=== PATIENT | female | born 1965 | race Two or more races ===

== ENCOUNTER → 2020-05-06 15:06 | Outpatient (BNVA) | payer MEDICAID, SELFPAY | PROVIDERS: PCP Internal Medicine; Referring Provider Internal Medicine; Visit Provider Internal Medicine | DX: Z76.89 Persons encountering health services in other specified circumstances (principal) ==

== ENCOUNTER 2020-10-11 07:34 | Outpatient (REF) | payer MEDICAID, SELFPAY ==
--- NOTE | ~2020-10-11 | XR_ITS ---
EXAMINATION: XR KNEE AP STANDING CLINICAL INFORMATION: Pain. COMPARISON: Right and left knee radiographs dated 07/15/2019. TECHNIQUE: AP bilateral standing view of the knees was obtained. FINDINGS: Mild right knee medial compartment joint space narrowing. Medial and lateral compartment marginal osteophytes. No acute fracture or dislocation. Partially visualized femoral intramedullary leandro. Partially visualized sclerosis in the region of the proximal tibia which is minimally visualized and the prior radiographs and likely relates to a remote injury. Small marginal osteophytes within the left knee lateral compartment. No lytic or blastic osseous lesion. No osseous erosion. No fracture or dislocation. XR/XR knee standing BI IMPRESSION: 1. Mild medial and lateral compartment osteoarthritis within the right knee, slightly progressed when compared to the prior examination. 2. Minimal lateral compartment osteoarthritis within the left lung, slightly progressed when compared to the prior examination.
== END 2020-10-11 07:35 | disposition home or self-care (01) ==
LOC: HO.HOSX 07:34
PROVIDERS: Visit Provider Orthopaedic Surgery
DX: M17.0 Bilateral primary osteoarthritis of knee (principal); M79.7 Fibromyalgia
CPT/HCPCS: 73565; 99202

== ENCOUNTER 2020-11-17 13:47 | Outpatient (REF) | payer MEDICAID, SELFPAY ==
--- NOTE | ~2020-11-17 | US_ITS ---
EXAMINATION: US THYROID CLINICAL INFORMATION: Multinodular goiter. COMPARISON: Ultrasound thyroid soft tissues neck 07/24/2017 TECHNIQUE: Linear transducer farah-scale and color Doppler examination with attention to the region of the thyroid. FINDINGS: SIZE: Measurements of the thyroid lobes and nodules are given in sagittal, anteroposterior and transverse dimensions respectively. Right thyroid lobe: 5.5 x 2.2 x 2.1 cm, volume 12.7 mL. Previously 4.1 x 2.5 x 1.8 cm, volume 10.0 mL. Left thyroid lobe: 4.5 x 1.8 x 1.5 cm, volume 6.6 mL. Previously 4.4 x 1.7 x 1.4 cm, volume 5.3 mL. Isthmus: 0.4 cm in maximum AP dimension. Previously 0.6 cm. PARENCHYMA: The gland echotexture is homogeneous.Thyroid vascularity is normal. Comparison with previous exam from 2018 is difficult. Estimated total number of nodules greater than or equal to 1 cm: 1. [employer] nodules are described as follows: 1. Location: Right mid. Size: 1.9 x 1.6 x 1.6 cm, volume 2.5 mL. Previously: 2.3 x 1.7 x 1.9 cm, volume 3.9 mL. Comparison with previous exam is difficult and this may have been described as multiple adjacent nodules on prior exam as opposed to 1 large nodule. Nodule characteristics: Composition: Solid/almost completely solid (2). Echogenicity: Isoechoic (1). Shape: Not taller than wide (0). Margins: Ill-defined (0). Echogenic Foci: None (0). ACR TI-RADS total points: 3 ACR TI-RADS category: 3 Significant change in size (>/= 20% in 2 dimensions and minimal increase of 2 mm or 50% or greater increase in volume): Yes but decreased Change in features: No Change in ACR TI-RADS risk category: No NODES: No lymphadenopathy is seen in the tissue surrounding the thyroid gland. US/US thyroid IMPRESSION: Enlarged right lobe. 1.9 x 1.6 x 1.6 cm right mid thyroid nodule. Comparison with previous exam is difficult, and this may have been described as multiple adjacent nodules on prior exam as opposed to 1 large nodule. ACR TI-RADS RECOMMENDATION REFERENCE: Ultrasound-guided fine-needle aspiration, followup ultrasound, no further followup. * TR1 (0 point) and TR 2 (2 points): No FNA or followup. * TR3 (3 points): FNA if more than or equal to 2.5 cm in maximum dimension, followup ultrasound in 1, 3 and 5 years if 1.5 to 2.4 cm in maximum dimension. * TR4 (4-6 points): FNA if more than or equal to 1.5 cm in maximum dimension, followup ultrasound in 1, 2, 3 and 5 years if 1 to 1.4 cm in maximum dimension. * TR5 (more than or equal to 7 points): FNA if more than or equal to 1 cm in maximum dimension, followup ultrasound every year for 5 years if 0.5 to 0.9 cm in maximum dimension. * TR3, TR4 or TR5 nodules that are below the size threshold for followup receive no followup.
== END 2020-11-17 13:48 | disposition home or self-care (01) ==
LOC: HO.US 13:47
PROVIDERS: PCP Internal Medicine; Visit Provider Internal Medicine
DX: E04.2 Nontoxic multinodular goiter (principal)
CPT/HCPCS: 76536

== ENCOUNTER → 2020-12-15 11:12 | Outpatient (BNVA) | payer MEDICAID, SELFPAY | PROVIDERS: PCP Internal Medicine; Visit Provider Internal Medicine ==

== ENCOUNTER 2022-09-27 14:19 | Outpatient (REF) | payer MEDICAID, SELFPAY ==
--- NOTE | ~2022-09-27 | MM_ITS ---
EXAMINATION: BONE DENSITOMETRY CLINICAL INDICATION: Postmenopausal. COMPARISON: None (current study represents initial baseline exam). TECHNIQUE: Using a [employer] DXA System (software version: 13.1) manufactured by [employer], dual-energy x-ray absorptiometry was performed of the lumbar spine and left hip. The images are of good technical quality. Summary results are attached. FINDINGS: AP SPINE L1-L4: BMD 1.038 g/cm2, Z-score -0.3, T-score -1.2, osteopenia. LEFT FEMUR, NECK: BMD 0.993 g/cm2, Z-score 0.7, T-score -0.3, normal. LEFT FEMUR, TOTAL: BMD 1.085 g/cm2, Z-score 1.3, T-score 0.6, normal. IDENTIFIED RISK FACTORS: History of fracture (adult), menopause, rheumatoid arthritis, tobacco user (current smoker). HISTORY OF FRACTURE: Hip. MEDICATIONS: None listed. MM/XR DEXA axial skeleton IMPRESSION: 1. DIAGNOSIS: Osteopenia based on the lowest T-score value of -1.2 in the lumbar spine applying World Health Organization criteria. 2. 10-YEAR FRACTURE RISK PREDICTION, FRAX: Major osteoporotic fracture (clinical spine, forearm, hip or shoulder) 7.2%. Hip fracture 0.4%. 3. Treatment Recommendations: NOF guidelines recommend consideration for treatment in postmenopausal women and men age 50 and older presenting with the following: -A hip or vertebral (clinical or morphometric) fracture. -T-score less than or equal to -2.5 at the femoral neck or spine after appropriate evaluation to exclude secondary causes. -Low bone mass at the hip or spine and a 10-year fracture probability by FRAX of greater than or equal to 3% for hip fracture or greater than or equal to 20% for major osteoporotic fracture based on the [place] adapted WHO algorithm. 4. Other Recommendations: All treatment decisions require clinical judgment and consideration of individual patient factors, including patient preferences, comorbidities, previous drug use, risk factors not captured in the FRAX model (e.g. frailty, falls, vitamin D deficiency, increased bone turnover, interval significant decline in bone density) and possible under or overestimation of fracture risk by FRAX. Additional medical evaluation for secondary cause of low bone mineral density may be appropriate. FUTURE SCAN RECOMMENDATION: People with diagnosed cases of osteoporosis or at high risk for fracture should have regular bone mineral density tests. For patients eligible for Medicare, routine testing is allowed once every 2 years. The testing frequency can be increased to one year for patients who have rapidly progressing disease, those who are receiving or discontinuing medical therapy to restore bone mass, or have additional risk factors.
== END 2022-09-27 14:20 | disposition home or self-care (01) ==
LOC: HO.MAMMO 14:19
PROVIDERS: Visit Provider Internal Medicine
DX: Z13.820 Encounter for screening for osteoporosis (principal); Z78.0 Asymptomatic menopausal state
CPT/HCPCS: 77080

== ENCOUNTER 2023-10-10 11:36 | Outpatient (REF) | payer MEDICAID, SELFPAY ==
[2023-10-10 13:21] LABS: MANUAL DIFF FLAG NO
[2023-10-10 13:51] LABS: Basophils Percent Auto 0.7 % (0-2); Eosinophils Absolute Auto 0.2 X10*3/uL (0.0-0.4); Eosinophils Percent Auto 2.8 % (0-4); Hematocrit 40.5 % (37.0-47.0); Hemoglobin 13.8 g/dl (12.0-16.0); Imm Gran Abs Auto 0.02 X10*3/uL (0.00-0.03); Imm Gran Pct Auto 0.3 % (0.0-0.4); Lymphocytes Percent Auto 35.1 % (20-40); Mean Corpuscular HGB Conc 34.1 g/dl (31.0-35.0); Mean Corpuscular Hemoglobin 33.3 pg (27.0-33.0); Mean Corpuscular Volume 97.8 fL (80.0-98.0); Mean Platelet Volume 11.9 fL (9.4-12.3); Monocytes Absolute Auto 0.3 X10*3/uL (0.1-1.2); Monocytes Percent Auto 4.6 % (2-11); Neutrophils Absolute Auto 3.3 x10*3/uL (2.0-8.3); Neutrophils Percent Auto 56.5 % (45-73); Platelet Count 182 X10*3/uL (160-400); Red Blood Count 4.14 X10*6/uL (4.20-5.50); Red Cell Distribution Width 12.2 % (11.0-16.0); White Blood Count 5.8 X10*3/uL (4.8-10.8)
[2023-10-10 14:04] LABS: Rheumatoid Factor 15.1 IU/mL (<15.0)
[2023-10-10 14:06] LABS: C Reactive Protein 0.22 mg/dL (< or = 0.50)
[2023-10-10 14:22] LABS: Erythrocyte Sedimentation Rate 14 MM/HR (0-20)
[2023-10-10 14:27] LABS: TSH reflex Free T4 1.06 uIU/mL (0.32-4.0)
[2023-10-11 07:18] LABS: Syphilis Screen Nonreactive (Nonreactive)
[2023-10-15 11:43] LABS: Anti Nuclear Antibody Screen NEGATIVE (NEGATIVE)
== END 2023-10-10 11:37 | disposition home or self-care (01) ==
LOC: HO.HHCL 11:36
PROVIDERS: Visit Provider Internal Medicine
DX: M17.0 Bilateral primary osteoarthritis of knee (principal)
CPT/HCPCS: 36415; 84443; 85025; 85652; 86038; 86140; 86431; 86780

== ENCOUNTER 2023-12-17 12:51 | Outpatient (REF) | payer MEDICAID, SELFPAY ==
[2023-12-18 07:52] LABS: HBS Num1 35.31 mIU/mL (0-7.99); HBc Num1 0.08 S/CO (0.00-0.79); HBsAGNum1 0.25 S/CO (0.00-0.99); Hepatitis A Antibody IgM 0.35 Index (0-0.79); Hepatitis B Core Antibody Nonreactive (Nonreactive); Hepatitis B Surface Antigen Negative (Negative); ~HepC Num1 0.14 S/CO (0.00-0.79); ~Hepatitis A Antibody IgM Nonreactive (Nonreactive); ~Hepatitis B Surface Antibody REACTIVE (Nonreactive); ~Hepatitis C Antibody Nonreactive (Nonreactive)
[2023-12-18 20:08] LABS: Anti DNA DS Antibody <1 IU/mL
[2023-12-19 15:49] LABS: Cyclic Citrullinated Peptide <16 UNITS
[2023-12-19 23:34] LABS: Complement C3 116 mg/dL (83-193)
== END 2023-12-17 12:52 | disposition home or self-care (01) ==
LOC: HO.HHCL 12:51
PROVIDERS: Visit Provider Internal Medicine
DX: R76.8 Other specified abnormal immunological findings in serum (principal); M25.561 Pain in right knee; G89.29 Other chronic pain
CPT/HCPCS: 36415; 86160; 86200; 86225; 86704; 86706; 86709; 86803; 87340

== ENCOUNTER 2024-02-22 14:27 | Outpatient (REF) | payer MEDICAID, SELFPAY ==
--- NOTE | ~2024-02-22 | XR_ITS ---
EXAMINATION: XR ANKLE, RIGHT CLINICAL INFORMATION: Pain COMPARISON: None available. TECHNIQUE: AP, lateral, and mortise views of the right ankle. FINDINGS: Negative for acute fracture or dislocation. There is soft tissue swelling medially greater than laterally. Possible joint effusion is also present. No evidence for bony erosion. Moderate spurring at the insertion of the Achilles and moderate to marked spurring at the insertion of the plantar aponeuroses on the calcaneus. The mortise is grossly intact. XR/XR ankle RT min 3V IMPRESSION: Soft tissue swelling as described and probable effusion. Some degenerative changes and spurring are noted. No acute fracture or dislocation. If further evaluation is warranted recommendation is MRI
== END 2024-02-22 14:28 | disposition home or self-care (01) ==
LOC: HO.HHCX 14:27
PROVIDERS: Visit Provider Internal Medicine
DX: M25.571 Pain in right ankle and joints of right foot (principal)
CPT/HCPCS: 73610

== ENCOUNTER 2024-05-23 10:03 | Outpatient (AMB) | payer MEDICAID, SELFPAY ==
--- NOTE | 2024-05-23 10:05 | MHC.OFFVIS ---
Vital Signs 05/23/24 10:21 Height 5 ft Weight 143 lb 4.807 oz BMI 28.0 BP 104/62 Blood Pressure Location Lt brachial Position Sitting Pulse 69 Pulse Source Pulse Oximeter Intake Visit Reasons: Thyroid Nod-# not in service Intake Note: New patient present today for Thyroid Nod office visit. 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 Accompanied by: Friend Allergies acetaminophen [Percocet] Allergy (Unknown, Verified 05/23/24 10:24) vomiting oxycodone [Percocet] Allergy (Unknown, Verified 05/23/24 10:24) vomiting No Known Allergies [No Known Allergies*] Allergy (Verified 05/23/24 10:24) Medication List - Last Reconciled 05/23/24 by Isela Santillan MD acetaminophen 325 mg PO QID PRN calcium carbonate (Antacid (calcium carbonate)) 200 mg PO BID diclofenac sodium 3% 1 appl topical BID duloxetine 90 mg PO DAILY hydroxyzine pamoate 50 mg PO BID lamotrigine 100 mg PO DAILY psyllium 1 packet PO TID venlafaxine ER 37.5 mg PO DAILY HPI Comments Details: 58 YO F with PMHx bipolar disorder who is seen in F/U for NTMNG. She was last seen in our clinic in [address] Smith. HPI from prior visit In late [address] scan of the cervical spine which made note of a 1.5 cm mass within the R lobe of the thyroid. Jul 2017 she had thyroid US which revealed multiple nodules within the R lobe of the thyroid, with a 1.4 cm nodule in the R mid pole with irregular margins. She underwent FNA of this R mid pole nodule 04/24/19. The nodule had grown at that time to measure 2.3 cm. Cytology was reported as Benign ([place] Category II). Most recent thyroid ultrasound 11/17/2020: I reviewed the images myself which showed the right mid 1.9 cm, solid, isoechoic nodule that measures smaller than previous measurement of 2.3 cm. Patient currently denies heat or cold intolerance, hair loss, palpitation, anxiety, mood changes, changes in appearance of eyes or vision changes, tremors, increased diaphoresis or dry skin. ? Reports loose stools seeing GI. Has lost 30 lbs in the last 3 years , says apetite is reduced. Reports low energy. Patient denies any difficulty swallowing, pain on swallowing or voice changes or difficulty breathing. Patient denies any history of childhood neck radiation. Denies having ever used lithium, amiodarone or biotin supplements. Patient denies any family history of thyroid cancer or thyroid disease. On disability. Smokes a pack a day, also smokes marijuana. Review of systems Constitutional: no fevers, chills or weight loss HEENT: no changes in vision Cardiac: No chest pain, discomfort or palpitations. Pulmonary: No SOB Physical exam General: sitting comfortably in no acute distress HEENT: normocephalic/atraumatic, moist oral mucosa Neck: supple, symmetrical Cardiac: normal heart sounds Pulm: normal breath sounds B/L, no added breath sounds Abd: not distended, no tenderness Extremities: no edema, no signs of myxedema Laboratory Tests 10/10/23 11:40 TSH 1.06 Thyroid US 11/17/2020: Right thyroid lobe: 5.5 x 2.2 x 2.1 cm, volume 12.7 mL. Previously 4.1 x 2.5 x 1.8 cm, volume 10.0 mL. Left thyroid lobe: 4.5 x 1.8 x 1.5 cm, volume 6.6 mL. Previously 4.4 x 1.7 x 1.4 cm, volume 5.3 mL. Isthmus: 0.4 cm in maximum AP dimension. Previously 0.6 cm. PARENCHYMA: The gland echotexture is homogeneous.Thyroid vascularity is normal. Comparison with previous exam from 2018 is difficult. Estimated total number of nodules greater than or equal to 1 cm: 1. [employer] nodules are described as follows: 1. Location: Right mid. Size: 1.9 x 1.6 x 1.6 cm, volume 2.5 mL. Previously: 2.3 x 1.7 x 1.9 cm, volume 3.9 mL. Comparison with previous exam is difficult and this may have been described as multiple adjacent nodules on prior exam as opposed to 1 large nodule. Nodule characteristics: Composition: Solid/almost completely solid (2). Echogenicity: Isoechoic (1). Shape: Not taller than wide (0). Margins: Ill-defined (0). Echogenic Foci: None (0). ACR TI-RADS total points: 3 ACR TI-RADS category: 3 Significant change in size (>/= 20% in 2 dimensions and minimal increase of 2 mm or 50% or greater increase in volume): Yes but decreased Change in features: No Change in ACR TI-RADS risk category: No NODES: No lymphadenopathy is seen in the tissue surrounding the thyroid gland. FORMERLY [facility] Medical History Anxiety Back pain Bakers cyst Bipolar disorder Depression Fibromyalgia Genital herpes Hepatitis B Multinodular thyroid Plantar fasciitis Tetanus Vitamin D deficiency Surgical History No pertinent past surgical history Family History Father No problems noted. Mother No problems noted. Assessment & Plan Assessment & Plan (1) Multinodular thyroid: Code(s): E04.2 - Nontoxic multinodular goiter Category: Medical Plan: 58-year-old female who is here today for follow up of nontoxic multinodular goiter. Diagnosed in [address] scan of the cervical spine. Ultrasound thyroid in 2018 showed multiple nodules with a dominant 1.4 cm right midpole nodule with a regular margins, subsequently this had grown to 2.3 cm in 2019 when she had her right midpole FNA in April 2019 with benign cytology ([place] category 2). Last ultrasound is from 2020 which showed stable size of the nodule which measured slightly smaller at 1.9 cm. No ultrasounds after that. TSH from October 2023 within normal limits. Patient does not have any compressive symptoms. We will plan to repeat thyroid ultrasound now. Does report tiredness and weight loss which is new, will recheck TFTs. Plan: -ordered ultrasound of the thyroid -Ordered TSH , free T4 -follow up in 8 weeks to discuss results Plan I spent 45 minutes in reviewing the record, seeing the patient and documenting in the medical record. Orders: Orders US thyroid Today E04.2 - Nontoxic multinodular goiter Thyroid Stimulating Hormone Today E04.2 - Nontoxic multinodular goiter Free T4 (Free Thyroxine) Today E04.2 - Nontoxic multinodular goiter Patient Instructions: Do thyroid ultrasound Do blood work Follow up in 8 weeks to discuss results Coding Level of Care Code New Pt Level 4 (77540) Diagnoses Multinodular thyroid E04.2 Time Spent (min) 45
[2024-05-23 10:21] VITALS: BP 104/62; PULSE 69; BMI 28.0
== END 2024-05-23 10:38 | disposition home or self-care (01) ==
PROVIDERS: PCP Internal Medicine; Visit Provider Student in an Organized Health Care Education/Training Program
DX: E04.2 Nontoxic multinodular goiter (principal)
CPT/HCPCS: 99204

== ENCOUNTER → 2024-05-23 10:03 | Outpatient (BNVA) | payer MEDICAID, SELFPAY | PROVIDERS: PCP Internal Medicine; Visit Provider Student in an Organized Health Care Education/Training Program | DX: E04.2 Nontoxic multinodular goiter (principal) | CPT/HCPCS: 99202 ==

== ENCOUNTER 2024-05-23 10:41 | Outpatient (REF) | payer MEDICAID, SELFPAY ==
[2024-05-23 13:52] LABS: Free T4 (Free Thyroxine) 0.92 ng/dL (0.71-1.85); Thyroid Stimulating Hormone 0.84 uIU/mL (0.32-4.0)
== END 2024-05-23 10:42 | disposition home or self-care (01) ==
LOC: HO.10HDL 10:41
PROVIDERS: Visit Provider Student in an Organized Health Care Education/Training Program
DX: E04.2 Nontoxic multinodular goiter (principal)
CPT/HCPCS: 36415; 84439; 84443

== ENCOUNTER 2024-06-12 14:07 | Outpatient (REF) | payer MEDICAID, SELFPAY ==
--- NOTE | ~2024-06-12 | US_ITS ---
EXAMINATION: Noninvasive assessment of the left lower extremity with ARTERIAL DUPLEX, ANKLE BRACHIAL INDICES (ABIs), and PULSE VOLUME RECORDINGS (PVRs). Noninvasive assessment of the right lower extremity with ANKLE BRACHIAL INDICES (ABIs), and PULSE VOLUME RECORDINGS (PVRs). CLINICAL INFORMATION: CLAUDICATION R/O PVD, history of smoking TECHNIQUE: Duplex Doppler techniques with waveform analysis and measurement of velocities in the left common femoral, profunda femoris, superficial femoral, popliteal and tibial arteries were performed. Additionally, ankle pulse volume recordings, ankle pressure measurements and ankle brachial indices were obtained of the lower extremity arterial system bilaterally. The study was performed only at rest. COMPARISON: None FINDINGS: DIRECT DUPLEX DOPPLER FINDINGS: LEFT LEG: Common femoral artery: 143 cm/s, phasicity: Triphasic Profunda femoris artery: 86 cm/s, phasicity: Biphasic Superficial femoral artery (proximal): 87 cm/s, phasicity: Triphasic Superficial femoral artery (mid): 103 cm/s, phasicity: Triphasic Superficial femoral artery (distal): 98 cm/s, phasicity: Triphasic Popliteal artery: 88 cm/s, phasicity: Triphasic Posterior tibial artery: 88 cm/s, phasicity: Biphasic Peroneal artery: 78 cm/s, phasicity: Biphasic Anterior tibial artery: 73 cm/s, phasicity: Biphasic Dorsalis pedis artery: 39 cm/s, phasicity: Biphasic A collateral is visualized at the left distal superficial femoral artery. BRACHIAL PRESSURES: Right: 111 Left: 110 ANKLE PRESSURES: Right: PT 128, DP 136 Left: PT 137, DP 136 ANKLE-BRACHIAL INDEX: Right: 1.23 Left: 1.23 ANKLE PVR WAVEFORMS: Right: Abnormal Left: Abnormal US/US arterial duplex LE LT IMPRESSION: 1. No evidence of hemodynamically significant stenosis in the left lower extremity by velocity criteria. However, a collateral is visualized at the left distal superficial femoral artery. 2. Normal ankle brachial indices bilaterally. SRINI Reference: - >1.4 = calcified vessels - 0.9 - 1.4 = normal - no significant arterial disease - 0.7 - 0.89 = mild peripheral arterial disease - 0.51 - 0.69 = moderate peripheral arterial disease - d 0.50 = severe peripheral arterial disease - < .30 = critical arterial disease Electronically signed by: Nancy Arambula MD 06/28/2024 06:02 PM DELFINO SUAREZ
== END 2024-06-12 14:08 | disposition home or self-care (01) ==
LOC: HO.US 14:07
PROVIDERS: Absent Provider Student in an Organized Health Care Education/Training Program; PCP Internal Medicine; Visit Provider Internal Medicine
DX: F17.200 Nicotine dependence, unspecified, uncomplicated (principal); E04.2 Nontoxic multinodular goiter; I73.9 Peripheral vascular disease, unspecified
CPT/HCPCS: 76536; 93923; 93926

== ENCOUNTER 2024-09-25 12:39 | Outpatient (AMB) | payer MEDICAID, SELFPAY ==
--- NOTE | 2024-09-25 13:07 | A.OFFVIS_ITS ---
Vital Signs 09/25/24 13:09 Height 5 ft Weight 144 lb 13.499 oz BMI 28.3 BP 90/58 L Blood Pressure Location Rt brachial Position Sitting Pulse 69 Pulse Source Pulse Oximeter Pulse Oximetry (%) 96 Oxygen Delivery Method Room Air Intake Visit Reasons: Multinodular thyroid Intake Note: Patient present today for Multinodular Thyroid follow up. Montessori Paraprofessional Required: No Accompanied by: Friend Allergies acetaminophen [Percocet] Allergy (Unknown, Verified 09/25/24 13:10) vomiting oxycodone [Percocet] Allergy (Unknown, Verified 09/25/24 13:10) vomiting No Known Allergies [No Known Allergies*] Allergy (Verified 09/25/24 13:10) Medication List - Last Reconciled 09/25/24 by Isela Santillan MD acetaminophen 325 mg PO QID PRN diclofenac sodium 3% 1 appl topical BID duloxetine 90 mg PO DAILY lamotrigine 100 mg PO DAILY psyllium 1 packet PO TID venlafaxine ER 37.5 mg PO DAILY HPI Comments Details: 58 YO F with PMHx bipolar disorder who is seen in F/U for NTMNG. HPI from prior visit In late [address] scan of the cervical spine which made note of a 1.5 cm mass within the R lobe of the thyroid. Jul 2017 she had thyroid US which revealed multiple nodules within the R lobe of the thyroid, with a 1.4 cm nodule in the R mid pole with irregular margins. She underwent FNA of this R mid pole nodule 04/24/19. The nodule had grown at that time to measure 2.3 cm. Cytology was reported as Benign ([place] Category II). thyroid ultrasound 11/17/2020: I reviewed the images myself which showed the right mid 1.9 cm, solid, isoechoic nodule that measures smaller than previous measurement of 2.3 cm. Patient currently denies heat or cold intolerance, hair loss, palpitation, anxiety, mood changes, changes in appearance of eyes or vision changes, tremors, increased diaphoresis or dry skin. ? Reports loose stools seeing GI. Has lost 30 lbs in the last 3 years , says apetite is reduced. Reports low energy. Patient denies any difficulty swallowing, pain on swallowing or voice changes or difficulty breathing. Patient denies any history of childhood neck radiation. Denies having ever used lithium, amiodarone or biotin supplements. Patient denies any family history of thyroid cancer or thyroid disease. On disability. Smokes a pack a day, also smokes marijuana. Interval history 05/23/2024: Normal TFTs 06/12/2024: Ultrasound of the thyroid I reviewed the images myself, which showed the right mid lobe solid, isoechoic nodule remained stable, it does point to a right inferior new nodule measuring 1.2 cm, however when I reviewed the images this looks to me as the same as the right mid lobe nodule, I do not necessarily think this is a separate new nodule. Regardless patient should have repeat imaging in 1 year . Physical exam General: sitting comfortably in no acute distress HEENT: normocephalic/atraumatic, moist oral mucosa Neck: supple, palpable 1 cm right nodule Cardiac: normal heart sounds Pulm: normal breath sounds B/L, no added breath sounds Abd: not distended, no tenderness Extremities: no edema, no signs of myxedema Laboratory Tests 10/10/23 11:40 TSH 1.06 Laboratory Tests 05/23/24 10:44 TSH 0.84 Free T4 0.92 US THYROID 06/12/24 CLINICAL INFORMATION: Nontoxic multinodular goiter. COMPARISON: Thyroid ultrasound 11/17/2020 and 07/24/2017. Ultrasound-guided thyroid biopsy 04/24/2019. TECHNIQUE: Linear transducer grayscale and color Doppler examination with attention to the region of the thyroid. FINDINGS: SIZE: Measurements of the thyroid lobes and nodules are given in sagittal, anteroposterior and transverse dimensions respectively. Right Thyroid Lobe: 5.3 x 2.2 x 2.3 cm, volume 12.7 mL. Previously 5.5 x 2.2 x 2.1 cm, volume 12.7 mL. Parenchyma: The gland echotexture is heterogeneous. Thyroid vascularity is normal. Left Thyroid Lobe: 4.1 x 1.5 x 1.5 cm, volume 4.4 mL. Previously 4.5 x 1.8 x 1.5 cm, volume 6.6 mL. Parenchyma: The gland echotexture is heterogeneous. Thyroid vascularity is normal. Isthmus: 0.5 cm in maximum AP dimension. Previously 0.4 cm. Estimated total number of nodules greater than or equal to 1 cm: 2. Residential Assistant nodules are described as follows: 1. Location: Right mid. Size: 1.7 x 1.7 x 1.7 cm, volume 2.5 mL. Previously: 1.9 x 1.6 x 1.6 cm, volume 2.5 mL. Nodule characteristics: Composition: Solid/almost completely solid (2). Echogenicity: Isoechoic (1). Shape: Not taller than wide (0). Margins: Ill-defined (0). Echogenic Foci: None (0). ACR TI-RADS total points: 3 Previous: 3 ACR TI-RADS category: 3 Previous: 3 Significant change in size (>/= 20% in 2 dimensions and minimal increase of 2 mm or 50% or greater increase in volume): No Change in features: No Change in ACR TI-RADS risk category: No 2. Location: Right inferior. Size: 1.2 x 0.8 x 1.0 cm, volume 0.5 mL. Previously: New since the previous study. Nodule characteristics: Composition: Solid/almost completely solid (2). Echogenicity: Isoechoic (1). Shape: Not taller than wide (0). Margins: Ill-defined (0). Echogenic Foci: None (0). ACR TI-RADS total points: 3 ACR TI-RADS category: 3 NODES: No lymphadenopathy is seen in the tissue surrounding the thyroid gland. US/US thyroid IMPRESSION: It is difficult to determine if nodules 1 and 2 represent two distinct nodules versus a single conglomerate nodule. 1.7 cm RIGHT TR 3 thyroid nodule is stable in size. New 1.2 cm RIGHT TR 3 thyroid nodule. Diffusely heterogeneous thyroid gland. Thyroid US 11/17/2020: Right thyroid lobe: 5.5 x 2.2 x 2.1 cm, volume 12.7 mL. Previously 4.1 x 2.5 x 1.8 cm, volume 10.0 mL. Left thyroid lobe: 4.5 x 1.8 x 1.5 cm, volume 6.6 mL. Previously 4.4 x 1.7 x 1.4 cm, volume 5.3 mL. Isthmus: 0.4 cm in maximum AP dimension. Previously 0.6 cm. PARENCHYMA: The gland echotexture is homogeneous.Thyroid vascularity is normal. Comparison with previous exam from 2018 is difficult. Estimated total number of nodules greater than or equal to 1 cm: 1. Residential Assistant nodules are described as follows: 1. Location: Right mid. Size: 1.9 x 1.6 x 1.6 cm, volume 2.5 mL. Previously: 2.3 x 1.7 x 1.9 cm, volume 3.9 mL. Comparison with previous exam is difficult and this may have been described as multiple adjacent nodules on prior exam as opposed to 1 large nodule. Nodule characteristics: Composition: Solid/almost completely solid (2). Echogenicity: Isoechoic (1). Shape: Not taller than wide (0). Margins: Ill-defined (0). Echogenic Foci: None (0). ACR TI-RADS total points: 3 ACR TI-RADS category: 3 Significant change in size (>/= 20% in 2 dimensions and minimal increase of 2 mm or 50% or greater increase in volume): Yes but decreased Change in features: No Change in ACR TI-RADS risk category: No NODES: No lymphadenopathy is seen in the tissue surrounding the thyroid gland. [facility] Medical History Anxiety Back pain Bakers cyst Bipolar disorder Depression Fibromyalgia Genital herpes Hepatitis B Multinodular thyroid Plantar fasciitis Tetanus Vitamin D deficiency Surgical History No pertinent past surgical history Family History Father No problems noted. Mother No problems noted. Assessment & Plan Assessment & Plan (1) Multinodular thyroid: Code(s): E04.2 - Nontoxic multinodular goiter Category: Medical Plan: 58-year-old female who is here today for follow up of nontoxic multinodular goiter. Diagnosed in [address] scan of the cervical spine. Ultrasound thyroid in 2018 showed multiple nodules with a dominant 1.4 cm right midpole nodule with a regular margins, subsequently this had grown to 2.3 cm in 2019 when she had her right midpole FNA in April 2019 with benign cytology ([place] category 2). 05/23/2024: Normal TFTs 06/12/2024: Ultrasound of the thyroid I reviewed the images myself, which showed the right mid lobe solid, isoechoic nodule remained stable, it does point to a right inferior new nodule measuring 1.2 cm, however when I reviewed the images this looks to me as the same as the right mid lobe nodule, I do not necessarily think this is a separate new nodule. Regardless patient should have repeat imaging in 1 year . Patient does not have any compressive symptoms. We will plan to repeat thyroid ultrasound and blood work in 1 year. Plan: -ordered ultrasound of the thyroid to be done in August 2025 -TSH, free T4 to be done in August 2025 -follow up in 1 year to discuss results Plan See above Orders: Orders TSH reflex Free T4 08/10/25 E04.2 - Nontoxic multinodular goiter US thyroid 08/10/25 E04.2 - Nontoxic multinodular goiter Patient Instructions: Please do ultrasound of the thyroid in August 2025, someone we will call you to schedule this Please do blood work in August 2025 follow up in September 2025 Coding Level of Care Code Est Pt Level 3 (60602) Diagnoses Multinodular thyroid E04.2
[2024-09-25 13:09] VITALS: BP 90/58; PULSE 69; O2SAT 96; BMI 28.3
--- OUTSIDE RECORDS SUMMARY | 2024-09-25 15:04 | XMS_ITS | Encounter Summary ---
Author Organization [employer] Address [address] [facility] [address] [place] [address] Care Team Providers Care Bar And Filler Assembler Name Role Phone Dafne Guzman MD Primary Care Provider + Luis Alberto Unavailable Unavailable Dangelo Price RN Unavailable [phone] Reason for Visit * Reason Onset Date Comments Appointment Request 11/15/2022 Encounter Details Date Type Department Care Team ([facility] st Contact Info) Description 11/15/2022 Telephone [facility] MED[facility]INE [address] [place], [place] [phone] Dafne Guzman MD [address] [place], [place] [phone] Appointment Request Social History Tobacco Use Types Packs/Day Years Used Date Smoking Tobacco: Every Day Cigarettes Smokeless Tobacco: Never Alcohol Use Standard Drinks/Week Comments Never 0 (1 standard drink = 0.6 oz pur e alcohol) PHQ-2 Answer Date Recorded Patient Health Questionnaire-2 Score 0 09/04/2022 Comments Unknown Sex and Gender Information Value Date Recorded Sex Assigned at Female 05/08/2022 10:30 AM EDT Legal Sex Female 10:30 AM EDT Gender Identity Choose not to disclose 10:30 AM EDT Sexual Orientation Choose not to disclose 2021 10:30 AM EDT COVID-19 Exposure Response Date Recorded In the last 10 days, have yo u been in contact with someone who was confirmed or suspected to have Coronavirus/COVID-19? No / Unsure 11/02/2022 2:47 PM EDT documented as of this encounter Miscellaneous Notes * Telephone Encounter - Arelis Stallworth - 11/15/2022 12:58 PM EDT Tc from pt requesting to r/s appt with provider for a follow up on 11/13/2022 for abd pain r\s form10/19/2022 Please contact pt at [phone] documented in this encounter Plan of Treatment Upcoming Encounters Date Type Department Care Team (Late st Contact Info) Description 09/29/2024 4:00 PM EDT Office Visit [facility] [address] [place] [address] Dafne Guzman MD [address] [place] [phone] 11/21/2024 11:15 AM EDT Office Visit [facility] [address] [place] [address] Dafne Guzman MD [address] [place] [address] 01/23/2025 11:00 AM EDT Office Visit [facility] OPTOMETRY [address] [place] [address] Janis Bill, OD [address] [place] [address] documented as of this encounter Visit Diagnoses Not on filedocumented in this encounter Additional Health Concerns Assessment Noted Time PHQ-9 Depression Total Score: 1 09/04/19 23 2:51 PM EST documented as of this encounter Care Teams Bar And Filler Assembler Relationship Specialty Start Date End Date Dafne Guzman MD [address] [place] [id number] PCP - General Family Medicine 04/03/17 Luis Alberto FNP [address] [place] [phone] Nurse Practitioner Family Medicine 05/28/23 Dangelo Price RN [address] [place], [place] [address], [place] [address] Metal Precision Machine AssemblerCruise Director 03/11/24 documented as of this encounter
--- OUTSIDE RECORDS SUMMARY | 2024-09-25 15:04 | XMS_ITS | Encounter Summary ---
Author Organization [facility] Address [address] [facility] [address] [place] [address] Care Team Providers Care Assembler Ping Pong Table Name Role Phone Dafne Guzman MD Primary Care Provider + Luis Alberto Unavailable Unavailable Dangelo Price RN Unavailable [phone] Encounter Details Date Type Department Care Team ([facility] st Contact Info) Description 09/19/2024 Population Health Risk Score [facility] ([facility]) Department [address] [phone] Provider, Population Health Generic Social History Tobacco Use Types Packs/Day Years Used Date Smoking Tobacco: Every Day Cigarettes Passive Smoke Exposure: Current Smokeless Tobacco: Never Alcohol Use Standard Drinks/Week Comments Never 0 (1 standard drink = 0.6 oz pur e alcohol) Depression Answer Date Recorded Patient Health Questionnaire-9 Score 7 10/30/2023 Patient Health Questionnaire-9 Score 7 10/30/2023 Last PHQ-9: Questionnaire Data Not on file 0 10/30/2023 Housing Stability Answer Date Recorded What is your housing situation today? I have [employer] 06/28/[address] you li ve. Do you have problems with any of the following? None of the above 06/28/2023 Food Insecurity Answer Date Recorded Within the past 12 months, y ou worried that your food would run out before you got money to buy more: Never True 04/18/2024 Within the past 12 months,th e food you bought just didn't last and you didn't have enough money to get more: Never True 05/2024 Transportation Answer Date Recorded In the past 12 months, has l ack of transportation kept you from medical appts, meetings, work or from getting things needed for daily living? No 03/21/2024 Utilities Answer Date Recorded In the past 12 months, has t he electric, gas, oil or water company threatened to shut off services in your home? No 06/28/2023 Depression Answer Date Recorded Patient Health Questionnaire-2 Score 2 10/30/2023 Internet Access Answer Date Recorded Internet Access Q1 Yes 03/21/2024 Internet Access Q2 Not on file 03/21/2024 Comments Unknown Sex and Gender Information Value Date Recorded Sex Assigned at Female 05/08/2022 10:30 AM EDT Legal Sex Female 10:30 AM EDT Gender Identity Choose not to disclose 10:30 AM EDT Sexual Orientation Choose not to disclose 2021 10:30 AM EDT documented as of this encounter Plan of Treatment Upcoming Encounters Date Type Department Care Team (Late st Contact Info) Description 09/29/2024 4:00 PM EDT Office Visit [facility] MEDICINE [address] [place] [address] Dafne Guzman MD [address] [place] [address] 11/21/2024 11:15 AM EDT Office Visit [facility] MED[facility]INE [address] [place] [address] Dafne Guzman MD [address] [place] [address] 01/23/2025 11:00 AM EDT Office Visit [facility] OPTOMETRY [address] [place] [address] Fly, Janis, OD [address] [place] [address] documented as of this encounter Visit Diagnoses Not on filedocumented in this encounter Additional Health Concerns Assessment Noted Time PHQ-9 Depression Total Score: 7 10/30/19 24 10:19 AM EDT documented as of this encounter Care Teams Assembler Ping Pong Table Relationship Specialty Start Date End Date Dafne Guzman MD [address] [place] [id number] PCP - General Family Medicine 04/03/17 Luis Alberto FNP [address] [place] [address] Nurse Practitioner Family Medicine 05/28/23 Dangelo Price, STAR [address] [place] [address] Field ObserverClient Care Coordinator 03/11/24 documented as of this encounter
--- OUTSIDE RECORDS SUMMARY | 2024-09-25 15:04 | XMS_ITS | Encounter Summary ---
Author Organization [employer] Address [address] [facility] 7t [place] [address] Care Team Providers Care Ortho/Prosthetic Aide Name Role Phone Dafne Guzman MD Primary Care Provider + Luis Alberto Unavailable Unavailable Dangelo Price RN Unavailable [phone] Reason for Referral * Consultation (Routine) - Closed Specialty Diagnoses / Procedures Referred By Contab t Referred To Contact Physical Therapy Diagnoses Shoulder tendinitis, right Dafne Guzman MD [address] [place] [address] Phone: tel: fax: Physical Therapy, [facility] [address] [place], [place] Phone: tel: fax: Referral ID Status Reason Start Date Expiration Date V isits Requested Visits Authorized [id number] Closed Specialty Services Required 08/28/2024 08/28/2025 20 20 Scheduling Instructions Wants to go to [facility] in [place] on [address] Reason for Visit * Reason Comments Pain Rt knee Encounter Details Date Type Department Care Team (Late st Contact Info) Description 08/27/2024 3:45 PM EST Office Visit [facility] [address] [place], [place] [phone] Dafne Guzman MD [address] [place], [place] [phone] Shoulder tendinitis, right (Primary Dx); Tobacco dependence syndrome; Chronic post-traumatic headache, not intractable; Post-traumatic arthritis of right lower leg; Encounter for immunization Social History Tobacco Use Types Packs/Day Years Used Date Smoking Tobacco: Every Day Cigarettes Passive Smoke Exposure: Current Smokeless Tobacco: Never Tobacco Cessation:Ready to Q uit: Not Asked; Counseling Given: Not Answered Alcohol Use Standard Drinks/Week Comments Never 0 [...] AM EDT documented as of this encounter Last Filed Vital Signs Vital Sign Reading Time Taken Comments Blood Pressure 106/67 08/27/2024 3:40 PM EST Pulse 74 08/27/2024 3:40 PM EST Temperature 36.1 ??C (97 ??F) 08/27/2024 3:40 PM EST Respiratory Rate 17 08/27/2024 3:40 PM EST Oxygen Saturation 96% 08/27/2024 3:40 PM EST Inhaled Oxygen Concentration - - Weight 64.5 kg (142 lb 3.2 oz) 08/27/2024 3:40 P M EST Height 149.9 cm (4' 11 ) 08/27/2024 3:40 PM EST Body Mass Index 28.72 08/27/2024 3:40 PM EST documented in this encounter Progress Notes * Dafne Guzman MD - 08/27/2024 3:45 PM EST SUBJECTIVE: Mabel Rojas is a 59 y.o. year old adult who presents for right knee pain . Denies recent illness, injury, or hospitalization. Patient complains of chronic right knee pain. She has history of recurrent bilateral knee pain and was referred to Orthopedics on 06/2024. She has the appointment with Orthopedics 08/29/2024. Patient would like to be referred to [facility]. CT Lung CA on 07/22/2024 was within normal limits. A right thyroid nodule was seen. She had a thyroid US on 06/12/2024 and is followed by Partnership Marketing Manager. Patient is compliant with her medications. She smokes one pack of cigarettes/day. Acute Concerns: Patient complains of recurrent right arm/shoulder pain. Social History Social History Narrative Lives alone, has VICE PRESIDENT LENDING to help with ADLs (due to multiple body aches, forgets things). Pos smoking Patient Active Problem List Diagnosis Acne Anxiety Mood disorder (CMS/HCC) Cannabis abuse Elevated blood pressure reading IFG (impaired fasting glucose) Incontinence of feces with fecal urgency Knee pain Low vision, both eyes Lipoma of extremity Noncompliance with treatment Obesity Onychomycosis Pain in upper limb Dupuytren's disease of palm Postmenopausal bleeding Recurrent major depressive episodes, moderate (CMS/HCC) Chronic neck pain Tobacco dependence syndrome Thyroid nodule Spasm of cervical paraspinous muscle Rheumatoid factor positive Body aches Whole body pain Chronic low back pain Rectal bleeding Smoking greater than 20 pack years Postmenopause Palmoplantar keratoderma Plantar fasciitis Chronic cough Localized osteoarthritis of both knees Claudication of lower extremity (CMS/HCC) Acute right ankle pain Chronic post-traumatic headache, not intractable Shoulder tendinitis, right Post-traumatic arthritis of right lower leg No family history on file. Review of Systems Constitutional: Negative for chills, fatigue and fever. HENT: Negative for congestion, ear pain, nosebleeds, rhinorrhea, sinus pressure, sore throat and trouble swallowing. Eyes: Negative for pain and discharge. Respiratory: Negative for cough, chest tightness and shortness of breath. Cardiovascular: Negative for chest pain, palpitations and leg swelling. Gastrointestinal: Negative for abdominal pain, blood in stool, constipation, diarrhea and nausea. Endocrine: Negative for polydipsia and polyuria. Genitourinary: Negative for dysuria, frequency, genital sores, pelvic pain and vaginal discharge. Musculoskeletal: Positive for arthralgias. Negative for back pain and neck pain. Skin: Negative for rash. Allergic/Immunologic: Negative for environmental allergies. Neurological: Positive for headaches. Negative for dizziness, seizures, weakness and light-headedness. Hematological: Negative for adenopathy. Psychiatric/Behavioral: Negative for agitation, behavioral problems, self-injury and suicidal ideas. OBJECTIVE: Vitals: 08/27/24 1540 BP: 106/67 Pulse: 74 Resp: 17 Temp: 97 ??F (36.1 ??C) SpO2: 96% Physical Exam HENT: Right Ear: Tympanic membrane and ear canal normal. Left Ear: Tympanic membrane and ear canal normal. Mouth/Throat: Mouth: Mucous membranes are moist. Pharynx: No oropharyngeal exudate or posterior oropharyngeal erythema. Eyes: Pupils: Pupils are equal, round, and reactive to light. Cardiovascular: Rate and Rhythm: Regular rhythm. Pulses: Normal pulses. Heart sounds: Normal heart sounds. No murmur heard. Pulmonary: Breath sounds: Normal breath sounds. Abdominal: General: Bowel sounds are normal. Palpations: Abdomen is soft. Tenderness: There is no abdominal tenderness. Musculoskeletal: Right shoulder: Tenderness present. Decreased range of motion. Cervical back: Neck supple. Right knee: Swelling present. Decreased range of motion. Tenderness present. Comments: Walks with a walker Skin: General: Skin is warm. Neurological: General: No focal deficit present. Mental Status: Mabel is alert and oriented to person, place, and time. Psychiatric: Mood and Affect: Mood normal. Behavior: Behavior normal. Problem List Items Addressed This Visit Shoulder tendinitis, right - Primary Most likely underlying OA, refer to PT. She wants to be referred to [facility]. Relevant Orders Referral to Physical Therapy Tobacco dependence syndrome Smokes one pack of cigarettes/day. Recent low dose CT Lungs within normal limits. Is willing to try Nicotine gum PRN. Will FU in 3-4 months. Chronic post-traumatic headache, not intractable If could have been worsened by recent head trauma last year. CT Scan within normal limits. Advised to take Tylenol PRN and cut down smoking. Post-traumatic arthritis of right lower leg S/P Displaced fracture of right tibia. FU by Orthopedics. Continue PT. Other Visit Diagnoses Encounter for immunization Relevant Orders FLU VACCINE TRIVALENT (Fluarix) 6 mo + (Completed) Follow Up: Current Outpatient Medications on File Prior to Visit Medication Sig Dispense Refill acetaminophen (Tylenol) 500 MG tablet take 1 tablet by oral route q8-12h prn pain Advair HFA 230-21 MCG/ACT inhaler USE 1 INHALATION BY MOUTH TWICE DAILY 12 g 3 ARIPiprazole (Abilify) 5 MG tablet Take 1 tablet (5 mg) by mouth Once daily. 90 tablet 3 diphenhydrAMINE (BENADryl) 25 MG tablet Take 1 tablet (25 mg) by mouth every 6 (six) hours if needed for itching. 30 tablet 0 DULoxetine (Cymbalta) [address] capsule Take 3 capsules (90 mg) by mouth Once per day. Do not crush or chew. 270 capsule 3 fluticasone (Flonase) 50 MCG/ACT nasal spray Administer 2 sprays into each nostril Once per day. Shake gently. Before first use, prime pump. After use, clean tip and replace cap. 16 g 3 guaiFENesin (Mucinex) 600 MG 12 hr tablet Take 2 tablets (1,200 mg) by mouth if needed in the morning and at bedtime for cough or congestion. Do not crush, chew, or split. 30 tablet 0 lamoTRIgine (LaMICtal) 200 MG tablet Take 1 tablet (200 mg) by mouth Once daily. 90 tablet 3 liver oil-zinc oxide (Desitin) 40 % ointment Apply topically if needed for irritation. 113 g 0 loperamide (Imodium) 2 MG capsule TAKE 1 TO 2 CAPSULES BY MOUTH IF NEEDED IN THE MORNING, AT NOON, IN THEN EVENING AND AT BEDTIME 30 capsule 0 loratadine (Claritin) 10 MG tablet Take 1 tablet (10 mg) by mouth Once per day. 30 tablet 3 meloxicam (Mobic) 15 MG tablet TAKE 1 TABLET BY MOUTH EVERY DAY NEEDED FOR PAIN 30 tablet 0 Misc. Devices (Pulse Oximeter For Finger) misc 1 each Once daily. 1 each 0 omeprazole (PriLOSEC) [address] capsule TAKE 1 CAPSULE BY MOUTH EVERY DAY BEFORE A MEAL 90 capsule 2 ProAir HFA 108 (90 Base) MCG/ACT inhaler TAKE 2 PUFFS BY MOUTH FOUR TIMES DAILY No current facility-administered medications on file prior to visit. I, Lyndsay Roa, am serving as a scribe to document services personally performed by Dr. Dafne Guzman, based on the patient's response to questions by provider and provider's statements to me. documented in this encounter Miscellaneous Notes * Assessment & Plan Note - Lyndsay Roa MA - 08/27/2024 4:52 PM EST Associated Problem(s): Post-traumatic arthritis of right lower leg S/P Displaced fracture of right tibia. FU by Orthopedics. Continue PT. * Assessment & Plan Note - Lyndsay Roa MA - 08/27/2024 4:51 PM EST Associated Problem(s): Chronic post-traumatic headache, not intractable If could have been worsened by recent head trauma last year. CT Scan within normal limits. Advised to take Tylenol PRN and cut down smoking. * Assessment & Plan Note - Lyndsay Roa MA - 08/27/2024 4:50 PM EST Associated Problem(s): Tobacco dependence syndrome Smokes one pack of cigarettes/day. Recent low dose CT Lungs within normal limits. Is willing to try Nicotine gum PRN. Will FU in 3-4 months. * Assessment & Plan Note - Lyndsay Roa MA - 08/27/2024 4:47 PM EST Associated Problem(s): Shoulder tendinitis, right Most likely underlying OA, refer to PT. She wants to be referred to [facility]. documented in this encounter Plan of Treatment Upcoming Encounters Date Type Department Care Team (Late st Contact Info) Description 09/29/2024 4:00 PM EDT Office Visit [facility] [address] [place] [address] Dafne Guzman MD [address] [place] [address] 11/21/2024 11:15 AM EDT Office Visit [facility] [address] [place] [address] Dafne Guzman MD [address] [place] [address] 01/23/2025 11:00 AM EDT Office Visit [facility] [address] [place] [address] Fly, Janis, OD [address] [place] [address] Scheduled Referrals Name Type Priority Associated Diagnoses Orde r Schedule Referral to Physical Therapy Outpatient Referral Routine Shoulder tendinitis, right Expected: 08/27/2024 (Approximate), Expires: 08/27/2025 documented as of this encounter Visit Diagnoses Diagnosis Shoulder tendinitis, right- Primary Tobacco dependence syndrome Tobacco use disorder Chronic post-traumatic headache, not intractable Post-traumatic arthritis of right lower leg Encounter for immunization documented in this encounter Additional Health Concerns Assessment Noted Time PHQ-9 Depression Total Score: 7 10/30/19 24 10:19 AM EDT documented as of this encounter Care Teams Ortho/Prosthetic Aide Relationship Specialty Start Date End Date Dafne Guzman MD [address] [place] [address] PCP - General Family Medicine 04/03/17 Luis Alberto FNP [address] [place] [address] Nurse Practitioner Family Medicine 05/28/23 Dangelo Price RN [address] [place] [id number] Property And Casualty Insurance AgentCrime Investigator Special Agent 03/11/24 documented as of this encounter
--- OUTSIDE RECORDS SUMMARY | 2024-09-25 15:04 | XMS_ITS | Encounter Summary ---
Author Organization [employer] Address [address] [facility] 7t [place] [address] Care Team Providers Care Hearing Impaired Itinerant Teacher Name Role Phone Dafne Guzman MD Primary Care Provider + Luis Alberto Unavailable Unavailable Dangelo Price RN Unavailable [phone] Reason for Visit * Reason Onset Date Comments Pt-1 09/12/2024 Encounter Details Date Type Department Care Team ([facility] st Contact Info) Description 09/12/2024 Telephone [facility] [address] [place], [place] [phone] Dafne Guzman MD [address] [place], [place] [phone] Pt-1 Social History Tobacco Use Types Packs/Day Years [...] AM EDT documented as of this encounter Miscellaneous Notes * Telephone Encounter - Delfino Chanel - 09/12/2024 4:20 PM EST Patient calling requesting PT1 Home Address verified: Y/N: Yes Provider name or facility name: [facility] Address: [address] [place] [address] Escort needed: Y/N: Yes Do you have a wheelchair: Y/N: No (Uses walker or cane) If yes- Manual or electric: N/A Visits: Once a month documented in this encounter Plan of Treatment Upcoming Encounters Date Type Department Care Team (Late st Contact Info) Description 09/29/2024 4:00 PM EDT Office Visit [facility] [address] [place] [address] Dafne Guzman MD [address] [place] [phone] 11/21/2024 11:15 AM EDT Office Visit [facility] [address] [place] [phone] Dafne Guzman MD [address] [place], [place] [phone] 01/23/2025 11:00 AM EDT Office Visit [facility] [address] [place], [place] [phone] Janis Bill, OD [address] [place] [address] documented as of this encounter Visit Diagnoses Not on filedocumented in this encounter Additional Health Concerns Assessment Noted Time PHQ-9 Depression Total Score: 7 10/30/19 10:19 AM EDT documented as of this encounter Care Teams Hearing Impaired Itinerant Teacher Relationship Specialty Start Date End Date Dafne Guzman MD [address] [place] [address] PCP - General Family Medicine 04/03/17 Luis Alberto FNP [address] [place] [address] Nurse Practitioner Family Medicine 05/28/23 Dangelo Price, STAR [address] [place] [phone] Shuttle RepairerPatient Transport Orderly 03/11/24 documented as of this encounter
--- OUTSIDE RECORDS SUMMARY | 2024-09-25 15:04 | XMS_ITS | Encounter Summary ---
Author Organization [employer] Address 75 [facility] 7t [place] [address] Care Team Providers Care Endodontic Assistant Name Role Phone Dafne Guzman MD Primary Care Provider + Luis Alberto Unavailable Unavailable Dangelo Price RN Unavailable [phone] Reason for Visit * Reason Onset Date Comments Pt1 09/17/2024 Encounter Details Date Type Department Care Team ([facility] st Contact Info) Description 09/17/2024 Telephone [facility] [address] [place], [place] [phone] Dafne uGzman MD [address] [place], [place] [phone] Pt1 Social History Tobacco Use Types Packs/Day Years [...] encounter Miscellaneous Notes * Telephone Encounter - Craig Morris - 09/17/2024 11:35 AM EDT Patient calling requesting PT1 Home Address verified: Y/N: Yes Provider name or facility name: [address], [place] [address] AT Physical Therapy Escort needed: Y/N: Yes Do you have a wheelchair: Y/N: No If yes- Manual or electric: Walker Visits: (2 x Weekly) documented in this encounter Plan of Treatment Upcoming Encounters Date Type Department Care Team (Late st Contact Info) Description 09/29/2024 4:00 PM EDT Office Visit [facility] [address] [place] [address] Dafne Guzman MD [address] [place] [address] 11/21/2024 11:15 AM EDT Office Visit [facility] [address] [place] [address] Dafne Guzman MD [address] [place] [address] 01/23/2025 11:00 AM EDT Office Visit [facility] [address] [place], [place] [phone] Janis Bill, OD [address] [place] [address] documented as of this encounter Visit Diagnoses Not on filedocumented in this encounter Additional Health Concerns Assessment Noted Time PHQ-9 Depression Total Score: 7 10/30/19 24 10:19 AM EDT documented as of this encounter Care Teams Endodontic Assistant Relationship Specialty Start Date End Date Dafne Guzman MD [address] [place] [address] PCP - General Family Medicine 04/03/17 Luis Alberto FNP [address] [place] [address] Nurse Practitioner Family Medicine 05/28/23 Dangelo Price RN [address] [place] [address] Mannequin Sander And FinisherRn Building 03/11/24 documented as of this encounter
--- OUTSIDE RECORDS SUMMARY | 2024-09-25 15:04 | XMS_ITS | Encounter Summary ---
Author Organization [employer] Address 75 [facility] 7t [place] [address] Care Team Providers Care Oil Expert Name Role Phone Dafne Guzman MD Primary Care Provider + Luis Alberto Unavailable Unavailable Dangelo Price RN Unavailable [phone] Reason for Visit * Reason Onset Date Comments Returning Call Back 12/11/2022 Encounter Details Date Type Department Care Team (Late st Contact Info) Description 12/11/2022 Telephone [facility] [address] [place], [place] [phone] Dafne Guzman MD [address] [place], [place] [phone] Returning Call Back Social History Tobacco Use Types Packs/Day Years [...] suspected to have Coronavirus/COVID-19? No / Unsure 12/11/2022 3:12 PM EDT documented as of this encounter Miscellaneous Notes * Telephone Encounter - Odette Hogue - 12/11/2022 10:17 AM EDT Tc from patient returning call back. documented in this encounter Plan of Treatment Upcoming Encounters Date Type Department Care Team (Late st Contact Info) Description 09/29/2024 4:00 PM EDT Office Visit [facility] [address] [place] [address] Dafne Guzman MD [address] [place] [address] 11/21/2024 11:15 AM EDT Office Visit [facility] [address] [place] [address] Dafne Guzman MD [address] [place] [address] 01/23/2025 11:00 AM EDT Office Visit [facility] [address] [place] [address] Fly, Janis, OD [address] [place] [address] documented as of this encounter Visit Diagnoses Not on filedocumented in this encounter Additional Health Concerns Assessment Noted Time PHQ-9 Depression Total Score: 1 09/04/19 23 2:51 PM EST documented as of this encounter Care Teams Oil Expert Relationship Specialty Start Date End Date Dafne Guzman MD [address] [place] [address] PCP - General Family Medicine 04/03/17 Luis Alberto FNP [address] [place] [address] Nurse Practitioner Family Medicine 05/28/23 Dangelo Price, STAR [address] [place] [address] Associate PrincipalMechanical Commissioning Engineer 03/11/24 documented as of this encounter
--- OUTSIDE RECORDS SUMMARY | 2024-09-25 15:04 | XMS_ITS | Encounter Summary ---
Author Organization [employer] Address [address] [facility] [address] [place] [address] Care Team Providers Care Data Security Coordinator Name Role Phone Dafne Guzman MD Primary Care Provider + Luis Alberto Unavailable Unavailable Dangelo Price RN Unavailable [phone] Encounter Details Date Type Department Care Team (Late Contact Info) Description 01/17/2023 Orders Only [facility] [address] [place] [address] [phone] Dafne Guzman MD [address] [place] [address] [phone] Social History Tobacco Use Types Packs/Day Years Used Date Smoking Tobacco: Every Day Cigarettes Smokeless Tobacco: Never Alcohol Use Standard Drinks/Week Comments Never 0 (1 standard drink = 0.6 oz pur e alcohol) PHQ-2 Answer Date Recorded Patient Health Questionnaire-2 Score 4 01/18/2023 Comments Unknown Sex and Gender Information Value [...] Description 09/29/2024 4:00 PM EDT Office Visit [facility] [address] [place] [address] [phone] Dafne Guzman MD [address] [place] [address] [phone] 11/21/2024 11:15 AM EDT Office Visit [facility] [address] [place] [address] Dafne Guzman MD [address] [place] [address] 01/23/2025 11:00 AM EDT Office Visit [facility] [address] [place] [address] Janis Bill, OD [address] [place] [address] documented as of this encounter Visit Diagnoses Not on filedocumented in this encounter Additional Health Concerns Assessment Noted Time PHQ-9 Depression Total Score: 12 023 3:14 PM EDT documented as of this encounter Care Teams Data Security Coordinator Relationship Specialty Start Date End Date Dafne Guzman MD [address] [place] [address] PCP - General Family Medicine 04/03/17 Luis Alberto FNP [address] [place], [place] Nurse Practitioner Family Medicine 05/28/23 Dangelo Price, STAR [address] [place] [address] Ecommerce Project ManagerOutside Plant Field Engineer 03/11/24 documented as of this encounter
--- OUTSIDE RECORDS SUMMARY | 2024-09-25 15:04 | XMS_ITS | Encounter Summary ---
Author Organization [employer] Address 75 [facility] 7t [place] [address] Care Team Providers Care Pump Room Operator Name Role Phone Dafne Guzman MD Primary Care Provider + Luis Alberto Unavailable Unavailable Dangelo Price RN Unavailable [phone] Reason for Visit * Reason Onset Date Comments referral 02/12/2023 Encounter Details Date Type Department Care Team ([facility] st Contact Info) Description 02/12/2023 Telephone [facility] [address] [place], [place] [phone] Dafne Guzman MD [address] [place], [place] [phone] referral Social History Tobacco Use Types Packs/Day Years [...] encounter Miscellaneous Notes * Telephone Encounter - Mulu Mcguire RN - 02/12/2023 11:50 AM EDT Please advise on if this change is possible or if new referral is needed (referral placed 12/28/22).Thank you! * Telephone Encounter - Arelis Stallworth - 02/12/2023 11:37 AM EDT Tc from pt stating that Referral for Endocrinology to be sent to [facility] due to [facility] discharging her from facility fully. Please contact pt at [phone] documented in this encounter Plan of Treatment Upcoming Encounters Date Type Department Care Team ([facility] st Contact Info) Description 09/29/2024 4:00 PM EDT Office Visit [facility] [address] [place] [address] Dafne Guzman MD [address] [place] [address] 11/21/2024 11:15 AM EDT Office Visit [facility] [address] [place] [address] Dafne Guzman MD [address] [place] [address] 01/23/2025 11:00 AM EDT Office Visit [facility] [address] [place] [address] Fly, Janis, OD [address] [place] [address] documented as of this encounter Visit Diagnoses Not on filedocumented in this encounter Additional Health Concerns Assessment Noted Time PHQ-9 Depression Total Score: 7 01/19/20 23 11:20 AM EDT documented as of this encounter Care Teams Pump Room Operator Relationship Specialty Start Date End Date Dafne Guzman MD [address] [place] [address] PCP - General Family Medicine 04/03/17 Luis Alberto FNP [address] [place] [address] Nurse Practitioner Family Medicine 05/28/23 Dangelo Price RN [address] [place] [address] VIVIAN Maldonado [phone] Well Drill Operator Cable ToolGeneral Technician 03/11/24 documented as of this encounter
--- OUTSIDE RECORDS SUMMARY | 2024-09-25 15:04 | XMS_ITS | Encounter Summary ---
Author Organization [employer] Address 75 [facility] 7t [place] [address] Care Team Providers Care Clinical Manager Home Care Name Role Phone Dafne Guzman MD Primary Care Provider + Luis Alberto Unavailable Unavailable Dangelo Price RN Unavailable [phone] Reason for Visit * Reason Onset Date Comments Nurse Triage 03/29/2023 Encounter Details Date Type Department Care Team ([facility] st Contact Info) Description 03/29/2023 Telephone [facility] MEDICINE 230 [place], [place] [phone] Dafne Guzman MD 230 [place], [place] [phone] Nurse Triage Social History Tobacco Use Types Packs/Day Years Used Date Smoking Tobacco: Every Day Cigarettes Smokeless Tobacco: Never Alcohol Use Standard Drinks/Week Comments Never 0 (1 standard drink = 0.6 oz pur e alcohol) Depression Answer Date Recorded Patient Health Questionnaire-9 Score 2 03/06/2023 Depression Answer Date Recorded Patient Health Questionnaire-2 Score 0 03/06/2023 Comments Unknown Sex and Gender Information Value Date Recorded Sex Assigned at Female 05/08/2022 10:30 AM EDT Legal Sex Female 10:30 AM EDT Gender Identity Choose not to disclose 10:30 AM EDT Sexual Orientation Choose not to disclose 2021 10:30 AM EDT documented as of this encounter Miscellaneous Notes * Telephone Encounter - Arelis Yung Stallworth - 03/29/2023 12:01 PM EDT Symptom: Skin Lump Outcome: Schedule an urgent appointment (within 4 hours) or talk to a nurse or provider soon Reason: Growing rapidly The caller accepted this outcome Please contact pt at [phone] documented in this encounter Plan of Treatment Upcoming Encounters Date Type Department Care Team ([facility] st Contact Info) Description 09/29/2024 4:00 PM EDT Office Visit [facility] MEDICINE 230 [place] [address] Dafne Guzman MD 230 [place] [address] 11/21/2024 11:15 AM EDT Office Visit [facility] MEDICINE 230 [place] [address] Dafne Guzman MD 230 [place] [address] 01/23/2025 11:00 AM EDT Office Visit [facility] OPTOMETRY [address] [place] [address] Fly, Janis, OD 230 [place] [address] documented as of this encounter Visit Diagnoses Not on filedocumented in this encounter Additional Health Concerns Assessment Noted Time PHQ-9 Depression Total Score: 2 03/06/20 23 11:10 AM EDT documented as of this encounter Care Teams Clinical Manager Home Care Relationship Specialty Start Date End Date Dafne Guzman MD [address] [place] [address] PCP - General Family Medicine 04/03/17 Luis Alberto FNP [address] [place] [address] Nurse Practitioner Family Medicine 05/28/23 Dangelo Price, STAR [address] [place] [address] Flight SuperintendentPelletizer Tender 03/11/24 documented as of this encounter
--- OUTSIDE RECORDS SUMMARY | 2024-09-25 15:04 | XMS_ITS | Encounter Summary ---
Author Organization [employer] Address 75 [facility] 7t [place] [address] Care Team Providers Care Cnc Laser Operator Name Role Phone Dafne Guzman MD Primary Care Provider + Luis Alberto Unavailable Unavailable Dangelo Price RN Unavailable [phone] Reason for Visit * Reason Onset Date Comments Mammo Order 08/26/2024 Encounter Details Date Type Department Care Team ([facility] st Contact Info) Description 08/26/[address] [facility] MEDICINE 230 [place], [place] [phone] Dafne Guzman MD 230 [place], [place] [phone] Mammo Order Social History Tobacco Use Types Packs/Day Years [...] encounter Miscellaneous Notes * Telephone Encounter - Sue Figueroa RN - 08/26/2024 4:39 PM EST RN received incoming fax from [employer] requesting PCP signature for screening mammo. PCP has signed and RN has faxed to [phone], confirmation page received. documented in this encounter Plan of Treatment Upcoming Encounters Date Type Department Care Team (Late st Contact Info) Description 09/29/2024 4:00 PM EDT Office Visit [facility] MEDICINE [address] [place] [address] Dafne Guzman MD 230 [place] [address] 11/21/2024 11:15 AM EDT Office Visit [facility] MEDICINE 230 [place] [address] Dafne Guzman MD 230 [place] [address] 01/23/2025 11:00 AM EDT Office Visit [facility] OPTOMETRY [address] [place] [address] Fly, Janis, OD 230 [place] [address] documented as of this encounter Visit Diagnoses Not on filedocumented in this encounter Additional Health Concerns Assessment Noted Time PHQ-9 Depression Total Score: 7 10/30/19 24 10:19 AM EDT documented as of this encounter Care Teams Cnc Laser Operator Relationship Specialty Start Date End Date Dafne Guzman MD 230 [place] [address] PCP - General Family Medicine 04/03/17 Luis Alberto FNP 230 [place] [address] Nurse Practitioner Family Medicine 05/28/23 Dangelo Price, STAR [address] [place] [phone] Insurance Agency OwnerHand Rug Braider 03/11/24 documented as of this encounter
--- OUTSIDE RECORDS SUMMARY | 2024-09-25 15:04 | XMS_ITS | Encounter Summary ---
Author Organization [email or web address] Address 75 [facility] 7t [place] [address] Care Team Providers Care Wastewater Supervisor Name Role Phone Dafne Guzman MD Primary Care Provider + Luis Alberto Unavailable Unavailable Dangelo Price RN Unavailable [phone] Reason for Visit * Reason Comments Care Coordination CHW outreach for SDO H PT-1 and food needs-referral completed Encounter Details Date Type Department Care Team (Latest Contact Info) Description 09/17/2024 Patient Outreach [facility] MEDICINE 230 [place], [place] [phone] Dafne Guzman MD 230 [place] [address] Care Coordination (CHW outreach for SDOH PT-1 and food needs-referral completed /) Social History Tobacco Use Types Packs/Day Years [...] AM EDT documented as of this encounter Progress Notes * Miles Castelan - 09/17/2024 12:03 PM EDT CHW Miles Castelan, placed outbound call to patient for assistance with SDOH as a referral was received by the provider. Patient's name and were confirmed. Patient screened positive for the following SDOH food insecurities. CHW referral patient to the local list of pantries in the area for help. PT-1 requested was send out in behalf of patient for futures appt. AT [id number] [facility]. Patient verbalizes understanding, and able to agree with plan to follow up.Patient educated on extended clinic hours on Mondays through Wednesdays, and Walk-In Urgent Care Located in [facility] of [facility]. Patient provided with after-hours line for [facility], , which offer night time triage service and option to transfer to clinical education consultant provider if needed. documented in this encounter Plan of Treatment Upcoming Encounters Date Type Department Care Team (Late st Contact Info) Description 09/29/2024 4:00 PM EDT Office Visit [facility] MEDICINE [address] [place] [address] Dafne Guzman MD 230 [place] [address] 11/21/2024 11:15 AM EDT Office Visit [facility] MEDICINE [address] [place] [address] Dafne Guzman MD 230 [place] [address] 01/23/2025 11:00 AM EDT Office Visit [facility] OPTOMETRY 267 [place] [address] Fly, Janis, OD 230 [place] [address] documented as of this encounter Visit Diagnoses Not on filedocumented in this encounter Additional Health Concerns Assessment Noted Time PHQ-9 Depression Total Score: 7 10/30/19 10:19 AM EDT documented as of this encounter Care Teams Wastewater Supervisor Relationship Specialty Start Date End Date Dafne Guzman MD 230 [place] [address] PCP - General Family Medicine 04/03/17 Luis Alberto FNP [address] [place] [address] Nurse Practitioner Family Medicine 05/28/23 Dangelo Price RN [address] [place] [address] Loss Control ManagerPlastics Heat Welder 03/11/24 documented as of this encounter
--- OUTSIDE RECORDS SUMMARY | 2024-09-25 15:04 | XMS_ITS | Encounter Summary ---
Author Organization [employer] Address 75 [facility] 7t [place] [address] Care Team Providers Care Cotton Seed Culler Name Role Phone Dafne Guzman MD Primary Care Provider + Luis Alberto Unavailable Unavailable Dangelo Price RN Unavailable [phone] Reason for Visit * Reason Comments Care Coordination CHW outreach for SDO H PT-1 and food needs-referral completed Encounter Details Date Type Department Care Team (Latest Contact Info) Description 09/15/2024 Patient Outreach [facility] MEDICINE 230 [place], [place] [phone] Dafne Guzman MD 230 [place] [address] Care Coordination (CHW outreach for SDOH PT-1 [...] encounter Progress Notes * Miles Castelan - 09/15/2024 8:58 AM EDT CHW Miles Castelan, placed outbound call to patient for assistance with SDOH as a referral was received by the provider. Patient's name and were confirmed. Patient screened positive for the following SDOH food insecurities. CHW referral patient to the local list of pantries in the area for help. PT-1 requested was send out in behalf of patient for futures appt. Patient verbalizes understandin g, and able to agree with plan to follow up. Patient educated on extended clinic hours on Mondays through Wednesdays, and Walk-In Urgent Care Located in [facility] of [facility]. Patient provided with after-hours line for [facility], , which offer night time triage service and option to transfer to non destructive testing technician provider if needed. documented in this encounter Plan of Treatment Upcoming Encounters Date Type Department Care Team (Late st Contact Info) Description 09/29/2024 4:00 PM EDT Office Visit [facility] MEDICINE 230 [place] [address] Dafne Guzman MD 230 [place] [address] 11/21/2024 11:15 AM EDT Office Visit [facility] MEDICINE [address] [place] [address] Dafne Guzman MD [address] [place], [place] 01/23/2025 11:00 AM EDT Office Visit [facility] OPTOMETRY [address] [place] [address] FlyJanis houston, OD 230 [place] [address] documented as of this encounter Visit Diagnoses Not on filedocumented in this encounter Additional Health Concerns Assessment Noted Time PHQ-9 Depression Total Score: 7 10/30/19 24 10:19 AM EDT documented as of this encounter Care Teams Cotton Seed Culler Relationship Specialty Start Date End Date Dafne Guzman MD 230 [place], [place] PCP - General Family Medicine 04/03/17 Luis Alberto FNP [address] [place] [address] Nurse Practitioner Family Medicine 05/28/23 Dangelo Price RN [address] [place] [address] Lace Machine OperatorMedical Unit Secretary 03/11/24 documented as of this encounter
--- OUTSIDE RECORDS SUMMARY | 2024-09-25 15:04 | XMS_ITS | Encounter Summary ---
Author Organization [employer] Address [address] [facility] [address] 7t [place] [address] Care Team Providers Care Trailer Truck Driver Name Role Phone Dafne Guzman MD Primary Care Provider + Luis Alberto Unavailable Unavailable Dangelo Price RN Unavailable [phone] Encounter Details Date Type Department Care Team (Late st Contact Info) Description 09/25/2023 Telephone [facility] MEDICINE 230 [place], [place] [phone] Dafne Guzman MD 230 [place], [place] [phone] Social History Tobacco Use Types Packs/Day Years Used Date Smoking Tobacco: Every Day Cigarettes Smokeless Tobacco: Never Alcohol Use Standard Drinks/Week Comments Never 0 (1 standard drink = 0.6 oz pur e alcohol) Depression Answer Date Recorded Patient Health Questionnaire-9 Score 3 08/13/2023 Patient Health Questionnaire-9 Score 3 08/13/2023 Last PHQ-9: Questionnaire Data Not on file 0 08/13/2023 Housing Stability Answer Date Recorded What is your housing situation today? I have nbalinda mcbride 06/28/[address] you li ve. Do you have problems with any of the following? None of the above 06/28/2023 Food Insecurity Answer Date Recorded Within the past 12 months, y ou worried that your food would run out before you got money to buy more: Never True 06/28/2023 Within the past 12 months,th e food you bought just didn't last and you didn't have enough money to get more: Never True Transportation Answer Date Recorded In the past 12 months, has l ack of transportation kept you from medical appts, meetings, work or from getting things needed for daily living? Yes, it has kept me from medical appointments or getting medications. 06/28/2023 Utilities Answer Date Recorded In the past 12 months, has t he electric, gas, oil or water company threatened to shut off services in your home? No 06/28/2023 Depression Answer Date Recorded Patient Health Questionnaire-2 Score 1 08/13/2023 Comments Unknown Sex and Gender Information Value [...] 4:00 PM EDT Office Visit [facility] MEDICINE 230 [place] [address] Dafne Guzman MD [address] [place] [address] 11/21/2024 11:15 AM EDT Office Visit [facility] MEDICINE 230 [place] [address] Dafne Guzman MD 230 [place] [address] 01/23/2025 11:00 AM EDT Office Visit [facility] OPTOMETRY [address] [place] [address] Fly, Janis, OD 230 [place] [address] documented as of this encounter Visit Diagnoses Not on filedocumented in this encounter Additional Health Concerns Assessment Noted Time PHQ-9 Depression Total Score: 3 08/13/19 24 2:37 PM EST documented as of this encounter Care Teams Trailer Truck Driver Relationship Specialty Start Date End Date Dafne Guzman MD [address] [place] [address] PCP - General Family Medicine 04/03/17 Luis Alberto FNP 230 [place] [address] Nurse Practitioner Family Medicine 05/28/23 Dangelo Price, STAR [address] [place] [address] Manufacturing ElectricianBullion Weigher 03/11/24 documented as of this encounter
--- OUTSIDE RECORDS SUMMARY | 2024-09-25 15:04 | XMS_ITS | Encounter Summary ---
Author Organization [employer] Address 75 [facility] 7t [place] [address] Care Team Providers Care Corporate Development Intern Name Role Phone Dafne Guzman MD Primary Care Provider + Luis Alberto Unavailable Unavailable Dangelo Price RN Unavailable [phone] Reason for Visit * Reason Onset Date Comments Appointment Request 04/28/2024 Encounter Details Date Type Department Care Team ([facility] Contact Info) Description 04/28/2024 Telephone [facility] MEDICINE 230 [place], [place] [phone] Dafne Guzman MD 230 [place], [place] [phone] Appointment Request Social History Tobacco Use Types [...] encounter Miscellaneous Notes * Telephone Encounter - Mark Monsalve - 04/28/2024 2:35 PM EDT Tc from patient calling to cancel appt for 04/28 and would like a call back to reschedule automobile and property underwriter did attempt to reschedule however patient refused and would like something sooner documented in this encounter Plan of Treatment Upcoming Encounters Date Type Department Care Team (Late st Contact Info) Description 09/29/2024 4:00 PM EDT Office Visit [facility] MEDICINE [address] [place] [address] Dafne Guzman MD 230 [place] [address] 11/21/2024 11:15 AM EDT Office Visit [facility] MEDICINE 230 [place] [address] Dafne Guzman MD 230 [place] [address] 01/23/2025 11:00 AM EDT Office Visit [facility] OPTOMETRY [address] [place] [address] Fly, Janis, OD 230 [place] [address] documented as of this encounter Visit Diagnoses Not on filedocumented in this encounter Additional Health Concerns Assessment Noted Time PHQ-9 Depression Total Score: 7 10/30/19 10:19 AM EDT documented as of this encounter Care Teams Corporate Development Intern Relationship Specialty Start Date End Date Dafne Guzman MD 230 [place] [address] PCP - General Family Medicine 04/03/17 Luis Alberto FNP 230 [place] [address] Nurse Practitioner Family Medicine 05/28/23 Dangelo Price, STAR [address] [place] [address] Warp KnitterBusiness Mgr 03/11/24 documented as of this encounter
--- OUTSIDE RECORDS SUMMARY | 2024-09-25 15:04 | XMS_ITS | Encounter Summary ---
Author Organization [employer] Address 75 [facility] 7t [place] [address] Care Team Providers Care Wood Finisher Apprentice Name Role Phone Dafne Guzman MD Primary Care Provider + Luis Alberto Unavailable Unavailable Dangelo Price RN Unavailable [phone] Reason for Visit * Reason Onset Date Comments Chart prep 08/26/2024 Encounter Details Date Type Department Care Team ([facility] st Contact Info) Description 08/26/2024 Telephone [facility] MEDICINE 230 [place], [place] [phone] Dafne Guzman MD 230 [place], [place] [phone] Chart prep Social History Tobacco Use Types Packs/Day Years [...] encounter Miscellaneous Notes * Telephone Encounter - Rupinder Lovell MA - 08/26/2024 9:46 AM EST Chart Prep Labs: done Images: done Vaccines due: yes Referrals: pending appt Screenings: mammogram Overdue care gaps: N/A documented in this encounter Plan of Treatment Upcoming Encounters Date Type Department Care Team ([facility] st Contact Info) Description 09/29/2024 4:00 PM EDT Office Visit [facility] MEDICINE [address] [place] [address] Dafne Guzman MD [address] [place] [address] 11/21/2024 11:15 AM EDT Office Visit [facility] MEDICINE [address] [place] [address] Dafne Guzman MD [address] [place] [address] 01/23/2025 11:00 AM EDT Office Visit [facility] OPTOMETRY [address] [place] [phone] Janis Bill, OD 230 [place] [address] documented as of this encounter Visit Diagnoses Not on filedocumented in this encounter Additional Health Concerns Assessment Noted Time PHQ-9 Depression Total Score: 7 10/30/19 24 10:19 AM EDT documented as of this encounter Care Teams Wood Finisher Apprentice Relationship Specialty Start Date End Date Dafne Guzman MD 230 [place] [address] PCP - General Family Medicine 04/03/17 Luis Alberto FNP [address] [place] [address] Nurse Practitioner Family Medicine 05/28/23 Dangelo Price RN [address] [place] [address] Ship Design TeacherRetail Branch Manager 03/11/24 documented as of this encounter
--- OUTSIDE RECORDS SUMMARY | 2024-09-25 15:04 | XMS_ITS | Encounter Summary ---
Author Organization [employer] Address [address] [facility] [address] 7t [place] [address] Care Team Providers Care Terminal System Operator Name Role Phone Dafne Guzman MD Primary Care Provider + Luis Alberto Unavailable Unavailable Dangelo Price RN Unavailable [phone] Encounter Details Date Type Department Care Team (Latest Contact Info) Description 08/27/2024 Travel Social History Tobacco Use Types Packs/Day Years [...] Description 09/29/2024 4:00 PM EDT Office Visit [facility] MEDICINE 230 [place] [address] Dafne Guzman MD 230 [place] [address] 11/21/2024 11:15 AM EDT Office Visit [facility] MEDICINE 230 [place] [address] Dafne Guzman MD 230 [place] [address] 01/23/2025 11:00 AM EDT Office Visit [facility] OPTOMETRY [address] [place] [address] Fly, Janis, OD 230 [place] [address] documented as of this encounter Visit Diagnoses Not on filedocumented in this encounter Additional Health Concerns Assessment Noted Time PHQ-9 Depression Total Score: 7 10/30/19 24 10:19 AM EDT documented as of this encounter Care Teams Terminal System Operator Relationship Specialty Start Date End Date Dafne Guzman MD [address] [place] [address] PCP - General Family Medicine 04/03/17 Luis Alberto FNP 230 [facility] [place] [address] Nurse Practitioner Family Medicine 05/28/23 Dangelo Price RN [address] [place] [address] [place] [address] Flash Oven OperatorStandpipe Tender 03/11/24 documented as of this encounter
--- OUTSIDE RECORDS SUMMARY | 2024-09-25 15:05 | XMS_ITS | Encounter Summary ---
Author Organization [employer] Address 75 [facility] 7t [place] [address] Care Team Providers Care Board Handler Name Role Phone Dafne Guzman MD Primary Care Provider + Luis Alberto Unavailable Unavailable Dangelo Price RN Unavailable [phone] Reason for Visit * Reason Onset Date Comments Referral 01/03/2024 Encounter Details Date Type Department Care Team ([facility] st Contact Info) Description 01/03/2024 Telephone [facility] MEDICINE 230 [place], [place] [phone] Dafne Guzman MD 230 [place], [place] [phone] Referral Social History Tobacco Use Types Packs/Day Years [...] your housing situation today? I have nba sing 06/28/[address] you li [...] Recorded Patient Health Questionnaire-2 Score 2 10/30/2023 Comments Unknown Sex and Gender Information Value Date Recorded Sex Assigned at Female 05/08/2022 10:30 AM EDT Legal Sex Female 10:30 AM EDT Gender Identity Choose not to disclose 10:30 AM EDT Sexual Orientation Choose not to disclose 2021 10:30 AM EDT documented as of this encounter Miscellaneous Notes * Telephone Encounter - Jennifer Vallecillo - 01/03/2024 1:25 PM EDT Tc from pt requesting a new referral or add visits for [facility], pt advised need to contact PCP office. documented in this encounter Plan of Treatment Upcoming Encounters Date Type Department Care Team (Late st Contact Info) Description 09/29/2024 4:00 PM EDT Office Visit [facility] MEDICINE [address] [place] [address] Dafne Guzman MD 230 [place] [address] 11/21/2024 11:15 AM EDT Office Visit [facility] MEDICINE [address] [place] [address] Dafne Guzman MD 230 [place] [address] 01/23/2025 11:00 AM EDT Office Visit [facility] OPTOMETRY [address] [place] [address] Janis Bill, OD 230 [place] [address] documented as of this encounter Visit Diagnoses Not on filedocumented in this encounter Additional Health Concerns Assessment Noted Time PHQ-9 Depression Total Score: 7 10/30/19 24 10:19 AM EDT documented as of this encounter Care Teams Board Handler Relationship Specialty Start Date End Date Dafne Guzman MD 230 [place] [address] PCP - General Family Medicine 04/03/17 Luis Alberto FNP [address] [place] [address] Nurse Practitioner Family Medicine 05/28/23 Dangelo Price, STAR [address] [place] [address] Special Education Math TeacherGypsum Block Setter 03/11/24 documented as of this encounter
--- OUTSIDE RECORDS SUMMARY | 2024-09-25 15:05 | XMS_ITS | Clinical Summary ---
Author Organization [facility] Address [address] [place] [address] Phone Care Team Providers Care Miner Name Role Phone Dafne Guzman MD Primary Care Provider + [phone] Allergies Active Allergy Reactions Criticality Noted Date Comments Oxycodone-Acetaminophen Nausea And Vomiting Medications acetaminophen (TYLENOL) 500 mg tablet Take 500 mg by mouth every 6 hours as needed. Active albuterol HFA (PROAIR HFA ; PROVENTIL HFA ; VENTOLIN HFA) 90 mcg/actuation inhaler Inhale 2 Puffs into the lungs 4 times daily as needed for Wheezing or Shortness of Breath. 3 Active ammonium lactate (LAC-HYDRIN) 12 % lotion Apply topically. 5 Active ARIPiprazole (ABILIFY) 2 mg tablet Take 1 tablet (2 mg total) by mouth 1 (one) time each day. 3 Active CALCIUM CARBONATE ORAL Take by mouth. Active cholecalciferol (VITAMIN D-3) 50 mcg (2,000 unit) capsule Take 1 capsule (2,000 Units total) by mouth 1 (one) time each day. 0 Active clotrimazole-be tamethasone (LOTRISONE) 1-0.05 % cream Apply to area sparingly twice a day for up to two weeks 0 Active diclofenac (VOLTAREN) 1 % topical gel 2 Active DULoxetine (CYMBALTA) [address] capsule Take 1 Capsule by mouth. 2 Active DULoxetine (CYMBALTA) [address] capsule Take 1 Capsule by mouth. 2 Active fluticasone propion-salmete roL (Advair HFA) 230-21 mcg/actuation inhaler Inhale 2 Puffs into the lungs 2 times daily. This medication has inhaler steroid: Rinse mouth with water and expectorate after each dose to prevent oral/esophageal candidiasis or fungal infection. 3 Active gabapentin (NEURONTIN) 300 mg capsule Take 300 mg by mouth. Active hydrocortisone 2.5 % cream Apply small amount over the affected area twice daily 3 Active IBUPROFEN ORAL Take by mouth. Active lamoTRIgine (LaMICtal) 200 mg tablet Take 1 Tablet by mouth. 5 Active meloxicam (MOBIC) 15 mg tablet Take 1 tablet (15 mg total) by mouth 1 (one) time each day. 2 Active nicotine polacrilex (NICORETTE) [address] 1 Lozenge inside cheek every 2 hours as needed for Smoking cessation (SMoking Cessation). 2 Active omeprazole (PriLOSEC) [address] capsule TAKE 1 CAPSULE BY MOUTH EVERY DAY BEFORE A MEAL 3 Active polyethylene glycol-electrol ytes (NULYTELY) 420 gram solution MIX AND DRINK DIRECTED 3 Active simvastatin (ZOCOR) 40 mg tablet Take 1 Tablet by mouth. 6 Active tiotropium (SPIRIVA) 18 mcg per inhalation capsule Inhale 1 Capsule into the lungs daily. 3 Active tolterodine (DETROL) 2 mg tablet Take 1 Tablet by mouth. 5 Active Active Problems Problem Noted Date Diagnosed Date Atypical lobular hyperplasia (ALH) of left breas t 07/17/2024 Hepatitis B 07/17/2024 History of substance abuse 05/30/2024 Overview (05/30/2024): 2018 :9 yrs clean crack/cocaine, alcohol Acute right ankle pain 02/22/2024 Claudication of lower extremity 12/17/2023 Localized osteoarthritis of both knees 4 Chronic cough 02/01/2023 Rectal bleeding 07/31/2022 Smoking greater than 20 pack years 07/31/2022 Diarrhea 06/16/2022 IFG (impaired fasting glucose) 06/16/2022 Incontinence of feces with fecal urgency 022 Low vision, both eyes 06/16/2022 Noncompliance with treatment 06/16/2022 Spasm of cervical paraspinous muscle 06/16/2022 Tubular adenoma of colon 10/07/2020 Overview (07/17/2024): repeat screening colonoscopy in 2027 Cervical high risk human pap illomavirus (HPV) DNA test positive 08/22/2019 Overview (07/18/2024): 08/15/2019 normal papsmear HR HPV neg 16/18/45 07/18/2024 PAP Urge incontinence 04/22/2018 Seropositive for herpes simplex 2 infection 07/2017 Recurrent major depressive episodes, moderate Rheumatoid factor positive 02/28/2018 Acne 12/18/2017 Anxiety 11/09/2017 Pain in upper limb 11/09/2017 Cannabis abuse 06/26/2017 Elevated blood pressure reading 06/26/2017 Lipoma of extremity 06/26/2017 Onychomycosis 06/26/2017 Thyroid nodule 06/26/2017 Overview (07/17/2024): Thyroid US 01/2023 with stable thyroid nodules and goiter. Tobacco dependence syndrome 06/26/2017 Obesity 09/13/2016 Fibromyalgia 11/25/2015 Bipolar disorder 09/28/2015 Chronic back pain 09/23/2015 Chronic knee pain 09/23/2015 Chronic pain of both shoulders 09/23/2015 COPD (chronic obstructive pulmonary disease) Hyperlipidemia 09/23/2015 Vitamin D deficiency 09/23/2015 Marijuana use 07/26/2014 Plantar fasciitis 07/23/2014 Overview (05/30/2024): Followed by comprehensive foot care in [place] Fatty liver 03/06/2013 GERD (gastroesophageal reflux disease) 3 Resolved Problems Problem Noted Date Diagnosed Date Resolved Date COVID 03/14/2023 07/18/2024 Postmenopausal bleeding 04/01/201807/09 Encounters Date Type Department Care Team Description 07/30/2024 Telephone Lung Screening Program - [facility] [address] [phone] Starr Mckeon [place] Results (Incidental Findings) 07/22/2024 1:15 PM EST - 07/22/2024 11:59 PM EST Hospital Encounter [facility] CT Scan [address] [place] [address] Screening for malignant neoplasm of respiratory organ; Cigarette smoker Discharge Disposition: Home or Self Care 07/18/2024 1:30 PM EST Office Visit Obstetrics & Gynecology - [facility] [address] [place] [phone] Kimberly Rodríguez CNM Encounter for well woman exam with routine gynecological exam (Primary Dx); Screening breast examination; Screening for malignant neoplasm of cervix; Urinary incontinence, unspecified type; Postmenopausal; Cervical high risk human papillomavirus (HPV) DNA test positive; Tobacco user; Vulvar itching 07/07/2024 Telephone Lung Screening Program - [facility] [address] [phone] Charlene Cisneros [place] Appointment (Reschedule) from Last 3 Months Immunizations Name Administration Dates Next Due Hepatitis A Adult (Havrix; V aqta) 19yo and older 10/10/2023 Influenza Quadravalent, MDCK , 0.5ml, preservative free (Flucelvax) 6mo and older 04/09/2022 Influenza Quadrivalent, 0.5m l, preservative free (Fluarix; FluLaval; Fluzone) ages 6mo and older (Afluria) 3yo and older 07/07/2021,06/27/2019,04/24/2016,08/31,03/18/2014,11/28/2010 Influenza Quadrivalent, with preservative (Fluzone; Afluria) 6mo and older 04/01/2018 Influenza trivalent, 0.5mL, preservative free (Fluarix; FluLaval; Fluzone) ages 6mo and older (Afluria) 3 years and older 07/07/2021,06/27/2019,04/24/2016,08/31,11/28/2010 Influenza trivalent, with pr eservative (Fluzone; Afluria) 6mo and older 03/18/2014,03/20/2011 PPD Test 11/28/2014 Pneumococcal conjugate 20 va lent (Prevnar 20, PCV 20) 2mo and older 11/16/2023 Pneumococcal polysaccharide 23 valent (Pneumovax 23) 2yo and older 01/01/2018 RSV, bivalent, protein subun it RSVpreF, 0.5mL, Preservative Free (ABRYSVO) 60yo and older or 32 through 36 wks of 12/17/2023 Tdap Tetanus diptheria acell ular pertussis (Boostrix; Adacel) 7yo and older 06/27/2019,01/01/2018 Zoster recombinant (Shingrix ) 19yo and older 12/13/2021,08/23/2021,04/23/2018 Surgical History Surgery Date Site/Laterality Comments FEMUR FRACTURE SURGERY 1996 Right PROCEDURE: AL OPEN TX FEMORAL FRACTURE DISTAL MED/LAT CONDYLE; COMMENT: right TUBAL LIGATION PROCEDURE: HISTORICAL TUBAL LIGATION COLONOSCOPY 06/2022 PROCEDURE: HISTORICAL COLONOSCOPY; COMMENT: nml Medical History Medical History Date Comments Bipolar disorder 09/28/2015 DX:Bipolar diso rder (HCC) Chronic back pain 09/23/2015 DX:Chronic landon k pain Chronic knee pain 09/23/2015 DX:Chronic kne e pain Chronic pain of both shoulders 09/23/2015 D X:Chronic pain of both shoulders COPD (chronic obstructive pu lmonary disease) (CMS/HCC) 09/23/2015 DX:COPD (chronic obstructive pulmonary disease) (HCC) Fatty liver 03/06/2013 DX:Fatty liver Fibromyalgia 11/25/2015 DX:Fibromyalgia GERD (gastroesophageal reflux disease) 03/06/2013 DX:GERD (gastroesophageal reflux disease) History of hepatitis B 04/22/2018 DX:Histor y of hepatitis B History of substance abuse DX:Pa story of substance abuse ([facility]); COMMENT: 2018 :9 yrs clean crack/cocaine, alcohol Hyperlipidemia 09/23/2015 DX:Hyperlipidemi a Marijuana use 07/26/2014 DX:Marijuana use Plantar fasciitis 07/23/2014 DX:Plantar fas ciitis; COMMENT: Overview: Followed by comprehensive foot care in [place] Seropositive for herpes simp yasmany 2 infection 04/08/2018 DX:Seropositive for herpes s implex 2 infection Tobacco use 04/16/2018 DX:Tobacco use Urge incontinence 04/22/2018 DX:Urge incont inence Vitamin D deficiency 09/23/2015 DX:Vitamin D deficiency Postmenopausal bleeding 04/01/2018 Covid 03/14/2023 Family History Medical History Relation Name Comments Lung cancer Brother 1 Tobacco use Lung cancer Brother 2 Tobacco use, al so cancer of the tongue Alcohol abuse Brother 3 Cirrhosis Brother 3 No Known Problems Brother 4 Lung cancer Father Arthritis Sister 1 Coronary artery disease Sister 4 Breast cancer Neg Hx Colon cancer Neg Hx Ovarian cancer Neg Hx Relation Name Status Comments Brother 1 Brother 2 Brother 3 Brother 4 Alive Father Mother Sister 1 Alive Sister 2 Alive Sister 3 Alive Sister 4 Social History Tobacco Use Types Packs/Day Years Used Date Smoking Tobacco: Every Day Cigarettes Smokeless Tobacco: Never Alcohol Use Standard Drinks/Week Comments No 0 (1 standard drink = 0.6 oz pur e alcohol) Comments No Sex and Gender Information Value Date Recorded Sex Assigned at Female 06/21/2024 5:23 PM EST Legal Sex Female 7:02 AM EST Gender Identity Female 06/21/2024 5:23 PM EST Sexual Orientation Straight 06/21/2024 5: 23 PM EST Occupation Industry Job Start Date Job End Date Not on file Not on file Not on file Not on file Obstetrics History Para Term AB IAB SAB Ectopic Multiple Livin g Live Births 5 3 3 2 1 1 3 3 Date Outcome GA Total Labor Labor/2nd/3rd Weight Sex Type Anes PTL Melanie A1 A5 Name Clin SAB Ectopic 1982 Term F Vag-S pont Living 1988 Term M Vag-S pont Living 2001 Term M CS-Un spec Living Last Filed Vital Signs Vital Sign Reading Time Taken Comments Blood Pressure 107/61 07/18/2024 1:35 PM EST Pulse 72 07/18/2024 1:35 PM EST Temperature 36.8 ??C (98.2 ??F) 06/21/2024 5:12 PM ES T Respiratory Rate 18 06/21/2024 5:12 PM EST Oxygen Saturation 95% 06/21/2024 5:12 PM EST Inhaled Oxygen Concentration - - Weight 65.3 kg (144 lb) 07/18/2024 1:35 PM EST Height 152.5 cm (5' 0.05 ) 07/18/2024 1:35 PM ES T Body Mass Index 28.08 07/18/2024 1:35 PM EST Plan of Treatment Upcoming Encounters Date Type Department Care Team (Late st Contact Info) Description 10/30/2024 1:00 PM EDT Office Visit Urogynecology [facility] [address] [place] [phone] Madison Mead MD [address] [facility] [address] [place] [address] Health Maintenance Due Date Last Done Comments Breast Cancer Screening 1965 Social Influencers of Health Screening 06/17/2022 COVID-19 Vaccine ( season) 2024 06/21/2022, 07/07/2021, 09/30/2020, Additional history exists Influenza Vaccine (#1) 2024 , 07/07/2021, 07/07/2021, Additional history exists Hepatitis A Vaccines (2 of 2 - Risk 2-dose series) 04/10/2024 10/10/2023 Depression Screening 10/29/2024 10/30/2023 Lung Cancer Screening (Low Dose CT) 07/22/2025 07/22/2024, 11/14/2022 Cholesterol Screening (Lipid Panel) 12/08/2026 12/08/2021 DTaP,Tdap,and Td Vaccines (3 - Td or Tdap) 06/27/2029 06/27/2019, 01/01/2018 Cervical Cancer Screening: HPV 07/18/2029 07/18/2024, 06/13/2021 Colorectal Cancer Screening: Colonoscopy 08/21/2032 08/21/2022 Zoster Vaccines Completed 12/13/2021, 08/09, 04/23/2018 HIV Screening Completed 05/22/2023, 12/08/2021 Hepatitis C Screening Completed 05/22/2023 Pneumococcal Vaccine: 50+ Years Completed 11/16/2023, 01/01/2018 Pneumococcal Vaccine: Pediatrics (0 to 5 Years) and At-Risk Patients (6 to 64 Years) Completed 11/16/2023, 01/01/2018 RSV Immunization Patients 60+ Years Old Completed 12/17/2023 HIB Vaccines Aged Out No longer eligi ble based on patient's age to complete this topic HPV Vaccines Aged Out No longer eligi ble based on patient's age to complete this topic Hepatitis B Vaccines Aged Out No long er eligible based on patient's age to complete this topic IPV Vaccines Aged Out No longer eligi ble based on patient's age to complete this topic MMR Vaccines Aged Out No longer eligi ble based on patient's age to complete this topic Meningococcal ACWY Vaccine Aged Out N o longer eligible based on patient's age to complete this topic Meningococcal B Vacine Aged Out No lo nger eligible based on patient's age to complete this topic RSV Immunization Patients Under 20 months Aged Out No longer eligible based on patient's age to complete this topic Varicella Vaccines Aged Out No longer eligible based on patient's age to complete this topic Procedures Procedure Name Priority Date/Time Associated Diagnosis Comments CT LUNG SCREENING Routine 07/22/2024 1:4 2 PM EST Screening for malignant neoplasm of respiratory organ Cigarette smoker TRICHOMONAS VAGINALIS ANTIGEN Routine 07/18/2024 2:21 PM EST Encounter for well woman exam with routine gynecological exam Vulvar itching WET PREP, GENITAL Routine 07/18/2024 2:2 1 PM EST Encounter for well woman exam with routine gynecological exam Vulvar itching PAP SMEAR Routine 07/18/2024 2:18 PM EST Encounter for well woman exam with routine gynecological exam Screening for malignant neoplasm of cervix HPV WITH REFLEX GENOTYPE Routine 07/18/2024 2:18 PM EST Encounter for well woman exam with routine gynecological exam Screening for malignant neoplasm of cervix HEPATITIS C SCREENING Routine 05/22/2023 HIV SCREENING Routine 05/22/2023 COLONOSCOPY Routine 08/21/2022 from Last 3 Months or Most Recently Relevant to Health Maintenance Results * CT Lung Screening (07/22/2024 1:42 PM EST) Anatomical Region Laterality Modality Chest Computed Tomogra phy 07/29/2024 4:15 PM EST Impressions 07/29/2024 4:26 PM EST Impression: 1. No suspicious developing pulmonary nodule. 2. 2.2 cm right thyroid nodule, for which a follow-up thyroid ultrasound is recommended. Lung-RADS Category: ??Lung-RADS 2: Nodule(s) with benign appearance or behavior. Continue annual screening with Low Dose Chest CT in 12 months. ?? Modifier S: Clinically Significant or Potentially Clinically Significant Findings. S code given for the right thyroid nodule, for which follow-up thyroid ultrasound is recommended. [place] ([id number]) -------- FINAL REPORT -------- Dictated By: Yazmin Leyva Dictated Date: 07/29/2024 16:15 ET Assigned Physician: Yazmin Leyva Reviewed and Electronically Signed By: Yazmin Leyva Signed Date: 07/29/2024 16:26 ET Workstation ID: [id number] Transcribed By: Self Edit Transcribed Date: 07/29/2024 16:15 ET Narrative 07/29/2024 4:26 PM EST History: ??58 year-old 37 pack-year current smoker, asymptomatic, for lung cancer screening. Father and brother had lung carcinoma. Brother also had head and neck carcinoma. Comparison: Technique: Helical volumetric imaging of the thorax was performed, using low- dose technique, without IV contrast. DLP: 142.99 mGy/cm ??CTDIvol: 4.89 mGy Aiming Iterative reconstruction technique Findings: Lungs and Airways: The trachea and central bronchial tree remain patent. Diffuse bronchial wall thickening is noted, worse than on the previous study, consistent with bronchitis in this setting. A 3 mm solid, noncalcified juxtapleural nodule is unchanged in the anteromedial right upper lobe (image 80 series 3). No suspicious developing pulmonary nodule is seen. Pleura: No pleural or pericardial effusions are seen. Base of neck, mediastinum and heart: The heart remains normal in size. The thoracic aorta is normal in caliber. A 2.2 x 1.4 cm hypoattenuating nodule is seen in the right thyroid lobe. No developing thoracic lymphadenopathy is seen. Soft tissues: The overlying soft tissues are unremarkable. Abdomen: This study was performed without contrast and with lower than standard dose. These factors reduce the sensitivity for detection of small lesions in the upper abdomen. No significant abnormality is seen. Procedure Note Yazmin Leyva MD - 07/29/2024 History: 58 year-old 37 pack-year current smoker, asymptomatic, for lungcancer screening. Father and brother had lung carcinoma. Brother also hadhead and neck carcinoma. Comparison: Technique: Helical volumetric imaging of the thorax was performed, usinglow-dose technique, without IV contrast. DLP: 142.99 mGy/cm CTDIvol: 4.89 mGy Aiming Iterative reconstruction technique Findings: Lungs and Airways: The trachea and central bronchial tree remain patent.Diffuse bronchial wall thickening is noted, worse than on the previousstudy, consistent with bronchitis in this setting. A 3 mm solid, noncalcified juxtapleural nodule is unchanged in theanteromedial right upper lobe (image 80 series 3). No suspiciousdeveloping pulmonary nodule is seen. Pleura: No pleural or pericardial effusions are seen. Base of neck, mediastinum and heart: The heart remains normal in size. Thethoracic aorta is normal in caliber. A 2.2 x 1.4 cm hypoattenuating noduleis seen in the right thyroid lobe. No developing thoracic lymphadenopathyis seen. Soft tissues: The overlying soft tissues are unremarkable. Abdomen: This study was performed without contrast and with lower thanstandard dose. These factors reduce the sensitivity for detection of smalllesions in the upper abdomen. No significant abnormality is seen. IMPRESSION: Impression: 1. No suspicious developing pulmonary nodule. 2. 2.2 cm right thyroid nodule, for which a follow-up thyroid ultrasoundis recommended. Lung-RADS Category: Lung-RADS 2: Nodule(s) with benign appearance orbehavior. Continue annual screening with Low Dose Chest CT in 12 months.Modifier S: Clinically Significant or Potentially Clinically SignificantFindings. S code given for the right thyroid nodule, for which follow-up thyroidultrasound is recommended. Telerad PA ([id number]) -------- FINAL REPORT -------- Dictated By: Yazmin Leyva Dictated Date: 07/29/2024 16:15 ET Assigned Physician: Yazmin Leyva Reviewed and Electronically Signed By: Yazmin Leyva Signed Date: 07/29/2024 16:26 ET Workstation ID: [id number] Transcribed By: Self Edit Transcribed Date: 07/29/2024 16:15 ET Yessica Andrea MD IMG CT PROCEDURES Final Result * Trichomonas vaginalis antigen (07/18/2024 2:21 PM EST) Trichomonas vaginalis Negative Negative 07/18/2024 6:34 PM EST [facility] Swab Vaginal structure / Unknown Non-blood Collection / Unknown 07/18/2024 2:21 PM EST 07/18/2024 4:10 PM EST Kimberly Rodríguez [facility] MICROBIOLOGY - GENERAL OR DERABLES Final Result Performing Organization Address [facility] Co de Phone Number [facility] [address] [place] [address], [place] [phone] * (ABNORMAL) Wet prep, genital (07/18/2024 2:21 PM EST) Clue Cells, Wet Prep Positive(A) Negative 07/18/2024 6:32 PM EST [facility] Yeast, Wet Prep Negative Negative 07/18/2024 6:32 PM EST [facility] Trichomonas, Wet Prep Indeterminate Negative 07/18/2024 6:32 PM EST [facility] Comment:Refer to Trichomonas antigen. Swab Vaginal structure / Unknown Non-blood Collection / Unknown 07/18/2024 2:21 PM EST 07/18/2024 4:10 PM EST Kimberly Rodríguez [facility] MICROBIOLOGY - GENERAL OR DERABLES Final Result Performing Organization Address City/[facility]/ZIP Co de Phone Number [facility] [address] [place] [address], [place] [phone] * HPV with reflex genotype (07/18/2024 2:18 PM EST) HPV Negative Negative LAB MICROBIOLOGY METHOD 07/22/2024 4:04 PM [facility] Brushing/Spatula Cervix uteri structure / Unknown 07/18/2024 2:18 PM EST 07/21/2024 9:01 AM EST [facility] MOLECULAR DIAGNOSTICS ORD ERABLES Final Result Performing Organization Address [facility]/ZIP Co de Phone Number [facility] [address] [place] [address], [place] [phone] * Pap Smear (07/18/2024 2:18 PM EST) Interpretation Negative for intraepithelial lesion or malignancy 07/24/2024 9:39 AM [facility] General Categorization Negative 07/24/2024 9:39 AM [facility] Other Findings Shift in osmar suggestive of bacterial vaginosis Reactive cellular changes associated with inflammation 07/24/2024 9:39 AM [facility] Specimen Adequacy Satisfactory for evaluation, endocervical/avelar sformation zone component present 07/24/2024 9:39 AM [facility] Pap Methodology Liquid Based Pap Test 07/24/2024 9:39 AM [facility] Disclaimer The Pap test is a screening test which carries an inherent false negative rate. These test results should be correlated with the patient's clinical findings and history. This Pap test was processed using an automated screening system. Technical cytopathology services provided by [facility], at [address] [place] [id number] (CLIA # [id number]/Carola Montgomery MD, Tomb Maker Helper.) 07/24/2024 9:39 AM EST [facility] Console Pap Interpretation Reported 07/24/2024 9:39 AM EST [facility] Brushing/Spatula Cervix uteri structure / Unknown 07/18/2024 2:18 PM EST 07/21/2024 9:01 AM EST [facility] CYTOLOGY ORDERABLES Final Result [facility] [address] [place] [address], * HIV Screening (05/22/2023) [facility] HIV Screening abstracted Historical Provider HEALTH MAINTENANCE Final Result * Hepatitis C Screening (05/22/2023) Pathologist [facility] Hepatitis C Screening abstracted Historical Provider HEALTH MAINTENANCE Final Result * Colonoscopy (08/21/2022) Pathologist [facility] Colonoscopy no interpretation , abstracted Anatomical Region Laterality Modality Other Historical Provider HEALTH MAINTENANCE Final Result from Last 3 Months or Most Recently Relevant to Health Maintenance Insurance MEDICAID - [place] Care Teams Miner Relationship Specialty Start Date End Date Dafne Guzman MD [address] [place] [phone] PCP - General 05/12/19
--- OUTSIDE RECORDS SUMMARY | 2024-09-25 15:05 | XMS_ITS | Encounter Summary ---
Author Organization [employer] Address 75 [facility] 7t [place] [address] Care Team Providers Care Machine Stone Polisher Apprentice Name Role Phone Dafne Guzman MD Primary Care Provider + Luis Alberto Unavailable Unavailable Dangelo Price RN Unavailable [phone] Reason for Visit * Reason Onset Date Comments Referral 01/21/2024 Encounter Details Date Type Department Care Team ([facility] st Contact Info) Description 01/21/2024 Telephone [facility] [address] [place], [place] [phone] Dafne Guzman MD [address] [place], [place] [phone] Referral Social History Tobacco Use Types Packs/Day [...] * Telephone Encounter - Delfino Chanel - 01/21/2024 1:04 PM EDT Tc from pt requesting new referral for [facility] due to current referral beingexpired. If any questions you can contact pt at [phone] documented in this encounter Plan of Treatment Upcoming Encounters Date Type Department Care Team ([facility] st Contact Info) Description 09/29/2024 4:00 PM EDT Office Visit [facility] MED[facility]INE [address] [place] [address] Dafne Guzman MD [address] [place] [address] 11/21/2024 11:15 AM EDT Office Visit [facility] [address] [place] [address] Dafne Guzman MD [address] [place] [address] 01/23/2025 11:00 AM EDT Office Visit [facility] OPTOMETRY [address] [place] [address] Janis Bill, OD 230 [place] [address] documented as of this encounter Visit Diagnoses Not on filedocumented in this encounter Additional Health Concerns Assessment Noted Time PHQ-9 Depression Total Score: 7 10/30/19 24 10:19 AM EDT documented as of this encounter Care Teams Machine Stone Polisher Apprentice Relationship Specialty Start Date End Date Dafne Guzman MD [address] [place] [address] PCP - General Family Medicine 04/03/17 Luis Alberto FNP [address] [place] [address] Nurse Practitioner Family Medicine 05/28/23 Dangelo Price, STAR [address] [place] [address] Chief OrthoptistK 12 Principal 03/11/24 documented as of this encounter
--- OUTSIDE RECORDS SUMMARY | 2024-09-25 15:05 | XMS_ITS | Encounter Summary ---
Author Organization [employer] Address 75 [facility] 7t [place] [address] Care Team Providers Care Certified Drug Counselor Name Role Phone Dafne Guzamn MD Primary Care Provider + Luis Alberto Unavailable Unavailable Dangelo Price RN Unavailable [phone] Reason for Referral * Consultation (Routine) - Canceled Specialty Diagnoses / Procedures Referred By Ashia woodward Referred To Contact Endocrinology Diagnoses Thyroid nodule Dafne Guzman MD [address] [place] [address] Phone: tel: fax: Referral ID Status Reason Start Date Expiration Date Visits Requested Visits Authorized [id number] Canceled Specialty Services Required 07/29/2024 07/29/2025 1 1 Scheduling Instructions Please attach Thyroid US on 06/12/24 and 04/2023 Encounter Details Date Type Department Care Team (Late st Contact Info) Description 07/29/2024 Orders Only [facility] MEDICINE [address] [place] [address] [phone] Dafne Guzman MD [address] [place], [place] [phone] Thyroid nodule (Primary Dx) Social History Tobacco Use Types Packs/Day Years [...] Description 09/29/2024 4:00 PM EDT Office Visit [facility] MED[facility]INE [address] [place] [address] Dafne Guzman MD [address] [place] [address] 11/21/2024 11:15 AM EDT Office Visit [facility] MED[facility]INE [address] [place] [address] Dafne Guzman MD [address] [place] [address] 01/23/2025 11:00 AM EDT Office Visit [facility] OPTOMETRY [address] [place], [place] [phone] Janis Bill, OD 230 [place] [address] Scheduled Referrals Name Type Priority Associated Diagnoses Order Schedule Referral to Endocrinology Outpatient Referral Routine Thyroid nodule Expected: 07/29/2024 (Approximate), Expires: 07/29/2025 documented as of this encounter Visit Diagnoses Diagnosis Thyroid nodule- Primary Nontoxic uninodular goiter documented in this encounter Additional Health Concerns Assessment Noted Time PHQ-9 Depression Total Score: 7 10/30/19 10:19 AM EDT documented as of this encounter Care Teams Certified Drug Counselor Relationship Specialty Start Date End Date Dafne Guzman MD 230 [place] [address] PCP - General Family Medicine 04/03/17 Luis Alberto FNP [address] [place] [address] Nurse Practitioner Family Medicine 05/28/23 Dangelo Price RN [address] [place] [phone] Pipe TurnerLoft Worker Apprentice 03/11/24 documented as of this encounter
--- OUTSIDE RECORDS SUMMARY | 2024-09-25 15:05 | XMS_ITS | Encounter Summary ---
Author Organization [employer] Address [address] [facility] [address] 7t [place] [address] Care Team Providers Care Instrumentation And Control Technician Name Role Phone Dafne Guzman MD Primary Care Provider + Luis Alberto Unavailable Unavailable Dangelo Price RN Unavailable [phone] Encounter Details Date Type Department Care Team (Late st Contact Info) Description 12/04/2023 Orders Only [facility] MEDICINE 230 [place] [address] ProviderCar MD Social History Tobacco Use Types Packs/Day Years [...] 4:00 PM EDT Office Visit [facility] MED[facility]INE [address] [place] [address] Dafne Guzman MD 230 [place] [address] 11/21/2024 11:15 AM EDT Office Visit [facility] MEDICINE [address] [place] [address] Dafen Guzman MD 230 [place] [address] 01/23/2025 11:00 AM EDT Office Visit [facility] OPTOMETRY [address] [place] [address] Fly, Janis, OD 230 [place] [address] documented as of this encounter Procedures Procedure Name Priority Date/Time Associated Diagnosis Comments COLONOSCOPY Routine 08/21/2022 10:42 AM EST documented in this encounter Results * Hm Colonoscopy (08/21/2022 10:42 AM EST) us Historical Provider HEALTH MAINTENANCE Final Result documented in this encounter Visit Diagnoses Not on filedocumented in this encounter Additional Health Concerns Assessment Noted Time PHQ-9 Depression Total Score: 7 10/30/19 24 10:19 AM EDT documented as of this encounter Care Teams Instrumentation And Control Technician Relationship Specialty Start Date End Date Dafne Guzman MD 230 [place] [address] PCP - General Family Medicine 04/03/17 Luis Alberto FNP [address] [place] [address] Nurse Practitioner Family Medicine 05/28/23 Dangelo Price RN [address] [place] [address] Clinic Office AssistantStamp Redemption Clerk 03/11/24 documented as of this encounter
--- OUTSIDE RECORDS SUMMARY | 2024-09-25 15:05 | XMS_ITS | Encounter Summary ---
Author Organization [employer] Address 75 [facility] 7t [place] [address] Care Team Providers Care Production Team Manager Name Role Phone Dafne Guzman MD Primary Care Provider + Luis Alberto Unavailable Unavailable Dangelo Price RN Unavailable [phone] Reason for Visit * Reason Onset Date Comments PT-1 01/18/2024 Encounter Details Date Type Department Care Team ([facility] st Contact Info) Description 01/18/2024 Telephone [facility] MEDICINE [address] [place], [place] [phone] Dafne Guzman MD [address] [place], [place] [phone] PT-1 Social History Tobacco Use Types Packs/Day Years [...] * Telephone Encounter - Delfino Chanel - 01/18/2024 10:02 AM EDT Patient calling requesting PT1 Home Address verified: Y/N: Yes Provider name or facility name: [facility] Address: [address] [place] [address] Escort needed: Y/N: Yes Do you have a wheelchair: Y/N: No If yes- Manual or electric: Uses [place] Visits: 2 times monthly documented in this encounter Plan of Treatment Upcoming Encounters Date Type Department Care Team (Late st Contact Info) Description 09/29/2024 4:00 PM EDT Office Visit [facility] MEDICINE [address] [place] [address] Dafne Guzman MD [address] [place] [address] 11/21/2024 11:15 AM EDT Office Visit [facility] MEDICINE [address] [place] [address] Dafne Guzman MD [address] [place] [address] 01/23/2025 11:00 AM EDT Office Visit [facility] OPTOMETRY [address] [place] [address] Janis Bill, OD 230 [place] [address] documented as of this encounter Visit Diagnoses Not on filedocumented in this encounter Additional Health Concerns Assessment Noted Time PHQ-9 Depression Total Score: 7 10/30/19 24 10:19 AM EDT documented as of this encounter Care Teams Production Team Manager Relationship Specialty Start Date End Date Dafne Guzman MD [address] [place] [address] PCP - General Family Medicine 04/03/17 Luis Alberto FNP [address] [place] [address] Nurse Practitioner Family Medicine 05/28/23 Dangelo Price RN [address] [place] [address] Buttermaker Continuous ChurnHeart Specialist 03/11/24 documented as of this encounter
--- OUTSIDE RECORDS SUMMARY | 2024-09-25 15:05 | XMS_ITS | Encounter Summary ---
Author Organization [employer] Address [address] [facility] 7t [place] [address] Care Team Providers Care Workers Compensation Attorney Name Role Phone Dafne Guzman MD Primary Care Provider + Luis Alberto Unavailable Unavailable Dangelo Price RN Unavailable [phone] Encounter Details Date Type Department Care Team ([facility] Contact Info) Description 08/03/2022 Orders Only [facility] MEDICINE [address] [place] [address] Hansa Veras LPN Social History Tobacco Use Types Packs/Day Years Used Date Smoking Tobacco: Every Day Cigarettes Smokeless Tobacco: Never Alcohol Use Standard Drinks/Week Comments Never 0 (1 standard drink = 0.6 oz pur e alcohol) PHQ-2 Answer Date Recorded Patient Health Questionnaire-2 Score 0 07/31/2022 Comments Unknown Sex and Gender Information Value Date Recorded Sex Assigned at Female 05/08/2022 10:30 AM EDT Legal Sex Female 10:30 AM EDT Gender Identity Choose not to disclose 2 10:30 AM EDT Sexual Orientation Choose not to disclose 2021 10:30 AM EDT COVID-19 Exposure Response Date Recorded In the last 10 days, have yo u been in contact with someone who was confirmed or suspected to have Coronavirus/COVID-19? No / Unsure 07/31/2022 3:20 PM EST documented as of this encounter Plan of Treatment Upcoming Encounters Date Type Department Care Team ([facility] Contact Info) Description 09/29/2024 4:00 PM EDT Office Visit [facility] MEDICINE [address] [place] [address] [phone] Dafne Guzman MD [address] [place] [address] 11/21/2024 11:15 AM EDT Office Visit [facility] MEDICINE [address] [place] [address] Dafne Guzman MD [address] [place], [place] 01/23/2025 11:00 AM EDT Office Visit [facility] OPTOMETRY [address] [place] [address] Fly, Janis, OD [address] [place] [address] documented as of this encounter Visit Diagnoses Not on filedocumented in this encounter Additional Health Concerns Assessment Noted Time PHQ-9 Depression Total Score: 3 07/25/19 23 2:11 PM EST documented as of this encounter Care Teams Workers Compensation Attorney Relationship Specialty Start Date End Date Dafne Guzman MD [address] [place] [address] PCP - General Family Medicine 04/03/17 Luis Alberto FNP [address] [place] [address] Nurse Practitioner Family Medicine 05/28/23 Dangelo Price RN [address] [place] [phone] Electro Mechanical TechnologistAir Press Operator 03/11/24 documented as of this encounter
--- OUTSIDE RECORDS SUMMARY | 2024-09-25 15:05 | XMS_ITS | Encounter Summary ---
Author Organization [employer] Address 75 [facility] 7t [place] [address] Care Team Providers Care Quill Machine Tender Name Role Phone Dafne Guzman MD Primary Care Provider + Luis Alberto Unavailable Unavailable Dangelo Price RN Unavailable [phone] Encounter Details Date Type Department Care Team (Late st Contact Info) Description 07/14/2022 [facility] Only [facility] [address] [place], [place] [phone] Dafne Guzman MD 230 [place], [place] [phone] Social History Tobacco Use Types Packs/Day Years Used Date Smoking Tobacco: Never Assessed Comments Unknown Sex and Gender Information Value [...] Description 09/29/2024 4:00 PM EDT Office Visit [facility] MEDICINE [address] [place] [address] [phone] Dafne Guzman MD 230 [place], [place] [phone] 11/21/2024 11:15 AM EDT Office Visit [facility] MED[facility]INE [address] [place] [address] [phone] Dafne Guzman MD [address] [place] [address] 01/23/2025 11:00 AM EDT Office Visit [facility] OPTOMETRY [address] [place], [place] [phone] Janis Bill, OD [address] [place] [address] documented as of this encounter Visit Diagnoses Not on filedocumented in this encounter Care Teams Quill Machine Tender Relationship Specialty Start Date End Date Dafne Guzman MD [address] [place], [place] [phone] PCP - General Family Medicine 04/03/17 Luis Alberto FNP [address] [place] [address] Nurse Practitioner Family Medicine 05/28/23 Dangelo Price, STAR [address] [place] [address] Clearance RepresentativeFood Stylist 03/11/24 documented as of this encounter
--- OUTSIDE RECORDS SUMMARY | 2024-09-25 15:05 | XMS_ITS | Encounter Summary ---
Author Organization [employer] Address 75 [facility] 7t [place] [address] Care Team Providers Care Home Designer Name Role Phone Dafne Guzman MD Primary Care Provider + Luis Alberto Unavailable Unavailable Dangelo Price RN Unavailable Encounter Details Date Type Department Care Team ([facility] Contact Info) Description 08/24/2022 Telephone [facility] [address] [place] [address] [phone] Dafne Guzman MD [address] [place] [address] Social History Tobacco Use Types Packs/Day Years [...] Upcoming Encounters Date Type Department Care Team ([facility] Contact Info) Description 09/29/2024 4:00 PM EDT Office Visit [facility] [address] [place] [address], [place] [address] Dafne Guzman MD [address] [place], [place] 11/21/2024 11:15 AM EDT Office Visit [facility] [address] [place] [address] Dafne Guzman MD [address] [place], [place] 01/23/2025 11:00 AM EDT Office Visit [facility] [address] [place] [address] Janis Bill, OD 230 [place] [address] documented as of this encounter Visit Diagnoses Not on filedocumented in this encounter Additional Health Concerns Assessment Noted Time PHQ-9 Depression Total Score: 3 07/25/19 23 2:11 PM EST documented as of this encounter Care Teams Home Designer Relationship Specialty Start Date End Date Dafne Guzman MD [address] [place], [place] PCP - General Family Medicine 04/03/17 Luis Alberto FNP [address] [place] [address] Nurse Practitioner Family Medicine 05/28/23 Dangelo Price RN [address] [place] [address] Burial AgentLlama Farmer 03/11/24 documented as of this encounter
--- OUTSIDE RECORDS SUMMARY | 2024-09-25 15:05 | XMS_ITS | Clinical Summary ---
Author Organization [employer] [facility] [employer] Address [address] [place] [address] Care Team Providers Care Telehealth Case Manager Name Role Phone Dafne Guzman MD Primary Care Provider + uLis Alberto Unavailable Unavailable Dangelo Price RN Unavailable [phone] Allergies Active Allergy Reactions Criticality Noted Date Comments Oxycodone-Acetaminophen 12/11/2022 Medications * This document contains information received from the source organization and may not represent a complete record from that organization. acetaminophen (Tylenol) 500 MG tablet take 1 tablet by oral route q8-12h prn pain 1 Active omeprazole (PriLOSEC) [address] capsuleIndicatio ns:Gastroesophag eal reflux disease, unspecified whether esophagitis present TAKE 1 CAPSULE BY MOUTH EVERY DAY BEFORE A MEAL 90 capsule 2 3 Active ProAir HFA 108 (90 Base) MCG/ACT inhaler TAKE 2 PUFFS BY MOUTH FOUR TIMES DAILY 2 Active loperamide (Imodium) 2 MG capsuleIndicatio ns:Diarrhea, unspecified type TAKE 1 TO 2 CAPSULES BY MOUTH IF NEEDED IN THE MORNING, AT NOON, IN THEN EVENING AND AT BEDTIME 30 capsule 3 Active Misc. Devices (Pulse Oximeter For Finger) miscIndications: COVID 1 each Once daily. 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 113 g 4 Active ARIPiprazole (Abilify) 5 MG tablet Take 1 tablet (5 mg) by mouth Once daily. 90 tablet 3 4 Active DULoxetine (Cymbalta) [address] capsuleIndicatio ns:Chronic neck pain,Mood disorder (CMS/HCC) Take 3 capsules (90 mg) by mouth Once per day. Do not crush or chew. 270 capsule 3 4 Active lamoTRIgine (LaMICtal) 200 MG tabletIndication s:Mood disorder (CMS/HCC) Take 1 tablet (200 mg) by mouth Once daily. 90 tablet 3 4 Active diphenhydrAMINE (BENADryl) 25 MG tablet Take 1 tablet (25 mg) by mouth every 6 (six) hours if needed for itching. 30 tablet 4 Active fluticasone (Flonase) 50 MCG/ACT nasal spray Administer 2 sprays into each nostril Once per day. Shake gently. Before first use, prime pump. After use, clean tip and replace cap. 16 g 3 5 Active guaiFENesin (Mucinex) 600 MG 12 hr tablet Take 2 tablets (1,200 mg) by mouth if needed in the morning and at bedtime for cough or congestion. Do not crush, chew, or split. 30 tablet 5 07/25/19 26 Active loratadine (Claritin) 10 MG tablet Take 1 tablet (10 mg) by mouth Once per day. 30 tablet 3 5 07/25/19 26 Active nicotine polacrilex (Nicorette) 4 MG gum Chew 1 each (4 mg) if needed for smoking cessation. 100 each 1 5 09/27/19 25 Active Active Problems Patient Care Coordination No te Formatting of this note migh t be different from the original. C3/CM Marce Marie RN Problem Noted Date Diagnosed Date Chronic post-traumatic headache, not intractable 08/27/2024 Assessment & Plan (08/27/2024 4:51 PM EST): If could have been worsened by recent head trauma last year. CT Scan within normal limits. Advised to take Tylenol PRN and cut down smoking. Shoulder tendinitis, right 08/27/2024 Assessment & Plan (08/27/2024 4:47 PM EST): Most likely underlying OA, refer to PT. She wants to be referred to [facility]. Post-traumatic arthritis of right lower leg 08/09 Assessment & Plan (08/27/2024 4:52 PM EST): S/P Displaced fracture of right tibia. FU by Orthopedics. Continue PT. Acute right ankle pain 02/22/2024 Claudication of lower extremity 12/17/2023 Assessment & Plan (01/29/2024 12:44 PM EDT): Advised to quit smoking Order Dupplex US LE Localized osteoarthritis of both knees Assessment & Plan (01/21/2024 5:15 PM EDT): New referral to PT We'll re evaluate after PT and decide f she needs to go back to orthopedics Continue ambulation with walker, needs one with seat due to concomitant asthma and multiple OA pains. FU in 3m Assessment & Plan (10/10/2023 11:06 AM EDT): Missed appointment with Orthopedics, and I will refer to PT. Restart Meloxicam x1 month and follow up with me. Continue ambulation with cane and walker to prevent falls. Chronic cough 02/01/2023 Assessment & Plan (10/10/2023 1:12 PM EDT): Patient has COPD, counseled to quit smoking Restart Advair 250mg bid, use albuterol prn sob/cough FU in 1m, consider PFTs Assessment & Plan (02/01/2023 2:21 PM EDT): Most likely COPD. I told her to use albuterol prn instead of bid. 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 Pt not ready to use nicotine replacement therapy. -Counseled to FU closely with pulmonology for asthma and chest CT scan for lung cancer screening -FU in 2 months. Postmenopause 07/31/2022 IFG (impaired fasting glucose) 06/16/2022 Assessment & Plan (01/21/2024 5:16 PM EDT): -Controlled, she doesn't have DM. I explained that thsi could be a partial culprit for her weakness. - I have discussed with pt regarding increasing physical activity and decrease calorie intake. -To check RBS at next visit. -order labs FU with me in 2 months. Assessment & Plan (07/31/2022 5:12 PM EST): -I have discussed with pt regarding increasing physical activity and decrease calorie intake. -To check RBS at next visit. -order labs FU with me in 2 months. Incontinence of feces with fecal urgency 022 Assessment & Plan (01/29/2024 12:42 PM EDT): Resolve with high fiber diet Continue to fu with GI.Colonoscopy is UTD Assessment & Plan (10/10/2023 11:05 AM EDT): - Pt wears pulls ups, continue Imodium prn , fiber and bulk-forming agent. - Follow up with GI. Assessment & Plan (02/01/2023 2:21 PM EDT): Improved as diarrhea is responding to Imodium FU with GI Continue imodium prn Knee pain 06/16/2022 Assessment & Plan (01/29/2024 12:43 PM EDT): Most likely OA, she was referred to ortho, reminded her to fu with them for injection. Advised to use walker, preferably with a seat in case she has to stop and rest, also due to claudication. Assessment & Plan (02/01/2023 2:22 PM EDT): OA. Referred to orthopedics Rx walker with a seat To replace old one. Given hx COPD and other sites OA she may benefit from stopping every few blocks Continue Meloxicam prn Low vision, both eyes 06/16/2022 Noncompliance with treatment 06/16/2022 Chronic neck pain 06/16/2022 Spasm of cervical paraspinous muscle 06/16/2022 Chronic low back pain 05/27/2018 Assessment & Plan (10/10/2023 10:55 AM EDT): Most likely related to OA. Continue ambulation with cane or walker to prevent falls and will revaluate after PT for knee OA. 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 Assessment & Plan (10/10/2023 10:56 AM EDT): Reportedly doing well on current medications, advised to not miss appointment with psychopharmacology clinic provider. Assessment & Plan (02/01/2023 2:23 PM EDT): Doing well on Abilify and Lamictal. Fu at psychopharmacology clinic. Assessment & Plan (12/11/2022 5:30 PM EDT): seen by psychopharmacology clinic, no change in medications I told her to address anxiety issues with counselor as diarrhea could be related to it pt feels safe at home and is able to contract for safety Rheumatoid factor positive 02/28/2018 Assessment & Plan (12/11/2022 5:31 PM EDT): order RA labs to see if it is active Pt is not taking any medication at this time yet, she was lost to fu with previous rheumatology office Acne 12/18/2017 Anxiety 11/09/2017 Pain in upper limb 11/09/2017 Dupuytren's disease of palm 11/09/2017 Body aches 10/08/2017 Assessment & Plan (12/11/2022 5:31 PM EDT): most likely multifactorial, including depression, r/o RA Order RA labs, take Tylenol PRN Reminded to attend her PT appointment for Knee OA FU at next visit Cannabis abuse 06/26/2017 Assessment & Plan (01/29/2024 12:51 PM EDT): Advised to cut down to off. D/w patient relationship between THC and anxiety. Elevated blood pressure reading 06/26/2017 Lipoma of extremity 06/26/2017 Onychomycosis 06/26/2017 Tobacco dependence syndrome 06/26/2017 Assessment & Plan (08/27/2024 4:50 PM EST): Smokes one pack of cigarettes/day. Recent low dose CT Lungs within normal limits. Is willing to try Nicotine gum PRN. Will FU in 3-4 months. Assessment & Plan (01/29/2024 12:55 PM EDT): Not committed to quit at this time due to anxiety Advised to cut down THC and fu closely with counselor. Needs CT scan chest for lung Ca screen, however she's missed multiple appts , I will ask CM to help her organize appts and fu at next appt to order LDCT Assessment & Plan (12/11/2022 5:31 PM EDT): counseled to quit smoking, she is unable to quit at this time counseled to get back to me when she is ready to do nicotine replacement therapy Thyroid nodule 06/26/2017 Overview (01/17/2023): Thyroid US 01/2023 with stable thyroid nodules and goiter. Assessment & Plan (10/10/2023 11:06 AM EDT): Stable size 2.7 cm. Follow up with Thyroid ultrasound on April 2024. Assessment & Plan (07/31/2022 5:14 PM EST): -Order thyroid US and reevaluate for new science and operations officer referral as patient was discharged from [facility] due to no shows. Plantar fasciitis 01/01/2017 Mood disorder 09/13/2016 Assessment & Plan (10/30/2023 12:19 PM EDT): Previously diagnosed as Bipolar Disorder. Unclear trauma history. Doing well, mood is stable. Continue current medications: Abilify 5 mg daily, Lamotrigine 200 mg once daily, and Duloxetine 30 mg 3 daily. F/U with therapist as usual. Since this provider is retiring, patient is now referred back to her PCP for continued medication management. Call [facility] with any issues or concerns. All questions were answered. I have wished her well. She agrees with the plan. Assessment & Plan (05/28/2023 11:13 AM EST): Previously diagnosed as Bipolar Disorder. Unclear trauma history. Doing well, mood is stable. Continue current medications: Abilify 5 mg daily, Lamotrigine 200 mg once daily, and Duloxetine 30 mg 3 daily. F/U with therapist as usual. Today 05/28/2023 provider informed the patient that I would be retiring within the next year or so, and suggest she speak with her therapist about referral to agency psychiatric prescriber. F/U with me in 2 months. She agrees with the plan. Assessment & Plan (01/18/2023 11:51 AM EDT): Previously diagnosed as Bipolar Disorder. Unclear trauma history. Had been stable on medications, mood swings and depressive episodes recently worsened. Was supposed to increase to Abilify 5 mg daily, but hasn't yet done this, says she will go now to the pharmacy and turkey picker the new Rx. Continue Lamotrigine 200 mg once daily (this could be increased as well) and Duloxetine 30 mg 3 daily (which may be a destabilizing factor). F/U with therapist as usual, and with me in approx. 1 month. She agrees with the plan. Assessment & Plan (12/18/2022 4:37 PM EDT): Previously diagnosed as Bipolar Disorder. Unclear trauma history. Had been stable on medications, now more irritable and depressed. Will increase to Abilify 5 mg daily. Continue Lamotrigine 200 mg once daily (this could be increased as well) and Duloxetine 30 mg 3 daily (which may be a destabilizing factor). F/U with therapist as usual, and with me in 1 month. She agrees with the plan. Assessment & Plan (09/04/2022 4:08 PM EST): Previously diagnosed as Bipolar Disorder. Unclear trauma history, declines to confirm even generally today. Has been stable, doing well on reasonable med regimen and will continue. F/U with therapist and with me in 2 months. She agrees with the plan. Obesity 09/13/2016 Whole body pain 09/13/2016 Resolved Problems Problem Noted Date Diagnosed Date Resolved Date COVID 03/14/2023 07/25/2024 Assessment & Plan (03/14/2023 2:56 PM EDT): I advise to rest and drink plenty of fluids I advise to quarantine as per CDC guidelines If SOB, confusion, chest pain go to the emergency room Pulse ox prescribed monitor sat to be above 93% Diarrhea 06/16/2022 07/25/2024 Assessment & Plan (02/01/2023 2:25 PM EDT): Sec to IBS. Doing well on Imodium. 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 Risk Score [facility] (C3) Department [address] [phone] Provider, Population Health Generic 09/17/2024 Patient Outreach [address] [phone] Dafne Guzman MD Care Coordination ([facility] outreach for SDOH PT-1 and food needs-referral completed /) 09/17/[address] [address] Dafne Guzman MD Pt1 09/15/2024 Patient Outreach [address] [address] Dafne Guzman MD Care Coordination ([facility] outreach for SDOH PT-1 and food needs-referral completed /) 09/12/[address] [address] Dafne Guzman MD Pt-1 08/27/2024 3:45 PM EST Office Visit [address] [address] Dafne Guzman MD Shoulder tendinitis, right (Primary Dx); Tobacco dependence syndrome; Chronic post-traumatic headache, not intractable; Post-traumatic arthritis of right lower leg; Encounter for immunization 08/27/2024 Travel 08/26/[address] [address] Dafne Guzman MD Mammo Order 08/26/[address] [address] Dafne Guzman MD Chart prep 08/22/[address] [address] Dafne Guzman MD Nurse Triage 08/22/[address] [address] Dafne Guzman MD Referral 08/21/[address] [address] Dafne Guzman MD Paperwork/Forms 07/30/2024 Orders Only [facility] [address] [place] [phone] Car Zaidi MD 07/29/[address] [address] Sue Figueroa, RN Results 07/29/2024 Orders Only [address] [address] Dafne Guzman MD Thyroid nodule (Primary Dx) 07/25/2024 11:20 AM EST Office Visit [facility] [address] [place] [phone] Sue Adams DO Influenza A 07/25/2024 Travel 07/22/[address] [address] Dafne Guzman MD PT1 07/04/[address] [phone] Dafne Guzman MD Stable Imaging Letter 06/30/2024 Travel 06/30/[address] [phone] Dafne Guzman MD Appointment Request from Last 3 Months Immunizations Name Administration Dates Next Due Hep A, Adult 10/10/2023 Influenza Injectable Quadriv alant Preservative Free IIV4 MDCK 04/09/2022 Influenza injectable quadriv alent IIV4 with preservative 04/01/2018 Influenza injectable quadriv alent preservative free 07/07/2021,06/27/2019,04/24/2016,08/31,03/18/2014,11/28/2010 Influenza, IIV3, injectable 03/18/2014, 1 Influenza, seasonal, injecta ble, preservative free 08/27/2024,07/07/2021,06/27/2019,04/24,08/31/2014,11/28/2010 Moderna Covid-19 Vaccine 12+ 07/07/2021,10/01/19 21,08/27/2020 PPD Test 11/28/2014 Pneumococcal Conjugate PCV 20 11/16/2023 Pneumococcal Polysaccharide PPSV23 01/01/2018 RSV Bivalent 12/17/2023 Tdap 06/27/2019,01/01/2018 Zoster, Recombinant 12/13/2021,08/23/2021,2017 Social History Tobacco Use Types Packs/Day Years [...] not to disclose 2021 10:30 AM EDT Last Filed Vital Signs Vital Sign Reading [...] Mass Index 28.72 08/27/2024 3:40 PM EST Plan of Treatment Upcoming Encounters Date Type Department Care Team (Late st Contact Info) Description 09/29/2024 4:00 PM EDT Office Visit [facility] [address] [place] [phone] Dafne Guzman MD [address] [place] [address] 11/21/2024 11:15 AM EDT Office Visit [facility] [address] [place] [address] Dafne Guzman MD [address] [place] [address] 01/23/2025 11:00 AM EDT Office Visit [facility] OPTOMETRY [address] [place] [address] Janis Bill, OD [address] [place] [address] Health Maintenance Due Date Last Done Comments CT Colonography 1963 FIT DNA/Cologuard 1963 FIT 1963 FOBT 1963 Sigmoidoscopy 1963 Alcohol/Substance Use Screening 1975 Hepatitis B Vaccines (1 of 3 - Risk 3-dose series) 2023 COVID-19 Vaccine ( season) 2024 06/21/2022, 07/07/2021, 09/30/2020, Additional history exists Hepatitis A Vaccines (2 of 2 - Risk 2-dose series) 04/10/2024 10/10/2023 Depression Screening 10/29/2024 10/30/2023, 10/30/19 24 Cervical Cancer Screening 12/17/2024 HPV/Cotest 12/17/2024 12/18/2019 Pap Smear 12/17/2024 12/18/2019, 12/03/2015 SDOH Screening 04/18/2025 04/18/2024 Mammogram 08/15/2025 08/15/2023, 04, 07/10/2019 Tobacco Screening 08/27/2025 08/27/2024 Lipid Panel 12/08/2026 12/08/2021, 11/25/2020 Colonoscopy 08/21/2027 08/21/2022, 10/06/2020 Colorectal Cancer Screening 08/21/2027 DTaP/Tdap/Td Vaccines (3 - Td or Tdap) 06/27/2029 06/27/2019, 01/01/2018 HIV Screening Completed 12/08/2021, 11/25/2020 Zoster Vaccines Completed 12/13/2021, 08/09, 04/23/2018 Pneumococcal Vaccine: 50+ Years Completed 11/16/2023, 01/01/2018 Hepatitis C Screening Completed 12/17/2023 , 12/08/2021, 11/25/2020 RSV Patients and Patients Aged 60 years or older Completed 12/17/2023 Influenza Vaccine Completed 08/27/2024, , 07/07/2021, Additional history exists HIB Vaccines Aged Out No longer eligi ble based on patient's age to complete this topic HPV Vaccines Aged Out No longer eligi ble based on patient's age to complete this topic IPV Vaccines Aged Out No longer eligi ble based on patient's age to complete this topic Meningococcal Vaccine Aged Out No kari angella eligible based on patient's age to complete this topic RSV under 20 months Aged Out No longe r eligible based on patient's age to complete this topic Rotavirus Vaccines Aged Out No longer eligible based on patient's age to complete this topic Procedures Procedure Name Priority Date/Time Associated Diagnosis Comments POCT RAPID STREP A Routine 07/25/2024 11 :09 AM EST Influenza A POCT RAPID COVID ANTIGEN Routine 07/25/2024 11:09 AM EST Influenza A POCT INFLUENZA A (ID NOW RAPID MOLECULAR) Routine 07/25/2024 11:09 AM EST Influenza A POCT INFLUENZA B (ID NOW RAPID MOLECULAR) Routine 07/25/2024 11:09 AM EST Influenza A CT LUNG SCREENING Routine 07/22/2024 1:4 7 PM EST HEPATITIS PANEL, GENERAL Routine 12/17/2023 12:52 PM EDT Chronic pain of right knee MAMMOGRAPHY Routine 08/15/2023 COLONOSCOPY Routine 08/21/2022 10:42 AM EST HIV 1/2 ANTIGEN/ANTIBODY, FOURTH GENERATION W/RFL Routine 12/08/2021 10:51 AM EDT LIPID PANEL, STANDARD Routine 12/08/2021 10:51 AM EDT PAP/HPV Routine 12/18/2019 from Last 3 Months or Most Recently Relevant to Health Maintenance Results * Influenza B (ID NOW Rapid Molecular) (07/25/2024 11:09 AM EST) Influenza B Negative Negative, Indeterminate [facility] Swab 07/25/2024 11:0 9 AM EST Sue Adams DO POINT OF CARE TEST ENTER/LANDON T ORDERABLES Final Result Performing Organization Address City/[facility]/ZIP Co de Phone Number [facility] [address] [place] [phone] * (ABNORMAL) Influenza A (ID NOW Rapid Molecular) (07/25/2024 11:09 AM EST) [facility] Influenza A Positive( A) Negative, Indeterminate [facility] Swab 07/25/2024 11:0 9 AM EST Sue Adams DO POINT OF CARE TEST ENTER/LANDON T ORDERABLES Final Result Performing Organization Address [facility]/ZIP Co de Phone Number [facility] [address] [place] [phone] * POCT Rapid COVID Ag (07/25/2024 11:09 AM EST) [facility] Rapid COVID Ag Negative Swab 07/25/2024 11:0 9 AM EST Result [facility] Sue Adams DO POINT OF CARE TEST ENTER/LANDON T ORDERABLES Final Result * POCT rapid strep A manually resulted (07/25/2024 11:09 AM EST) [facility] Rapid Strep A Screen Negative Negative, None Detected Swab 07/25/2024 11:0 9 AM EST Sue Adams DO POINT OF CARE TEST ENTER/LANDON T ORDERABLES Final Result * CT Lung Screening Low dose (07/22/2024 1:47 PM EST) Anatomical Region Laterality Modality Lung Computed Tomogra phy Historical Provider IMG CT PROCEDURES Final R esult * Hepatitis Panel, General (12/17/2023 12:52 PM EDT) Hepatitis A IgM Nonreactive Nonreactive [facility] Comment:IgM antibodies to TOWNSEND V not detected; does not exclude earlyacute or recovered HAV infection. ~Hepatitis B Surface Antibody REACTIVE Nonreactive [facility] Comment:REACTIVE: > 11.99 mI U/mL Hepatitis B Core Antibody Nonreactive Nonreactive [facility] Hepatitis C Antibody Nonreactive Nonreactive [facility] Comment:Antibodies to HCV no t detected; does not exclude early acuteHCV infection. Hepatitis B Surface Ag Negative Negative [facility] Blood 12/17/2023 12:5 2 PM EDT 12/17/2023 3:47 PM EDT Dafne Guzman MD LAB BLOOD ORDERABLES Fin al Result [facility] [address] [place] [phone] * Mammography (08/15/2023) Mammogram BIRADS 2 Normal, Abnormal, BIRADS 1 , BIRADS 2 Anatomical Region Laterality Modality Other Impressions 08/15/2023 Results scanned in director mobile media solutions Historical Provider HEALTH MAINTENANCE Final Result * Colonoscopy (08/21/2022 10:42 AM EST) Historical Provider HEALTH MAINTENANCE Final Result * HIV 1/2 ANTIGEN/ANTIBODY,FOURTH GENERATION W/RFL (12/08/2021 10:51 AM EDT) HIV-1/2 ANTIGEN AND ANTIBODIES, 4TH GENERATION W/ REFLEX NON-REACT [facility] NON-REACT [facility] Comment: HIV-1 antigen and HIV-1/HIV-2 antibodies were not detected. There is no laboratory evidence of HIV infection. ?? PLEASE NOTE: This information has been disclosed to you from records whose confidentiality may be protected by state law. ??If your state requires such protection, then the state law prohibits you from making any further disclosure of the information without the specific written consent of the person to whom it pertains, or as otherwise permitted by law. A general authorization for the release of medical or other information is NOT sufficient for this purpose. ? For additional information please refer to http://[employer].Retrevo/faq/OFJ926 (This link is being provided for informational/ educational purposes only.) ? The performance of this assay has not been clinically validated in patients less than 2 years old. ?? 12/08/2021 10:5 1 AM EDT us Dafne Guzman MD LAB BLOOD ORDERABLES Fin al Result [facility] [address] * (ABNORMAL) LIPID PANEL, STANDARD (12/08/2021 10:51 AM EDT) Chol/HDLC Ratio 3.4 <5.0 (calc) [facility] Cholesterol, Total 147 <200 mg/dL [facility] HDL Cholesterol 43(L) > OR = 50 mg/dL [facility] LDL Cholesterol 78 mg/dL (calc) [facility] Comment: Reference range: <100 ?? Desirable range <100 mg/dL for primary prevention; ?? <70 mg/dL for patients with CHD or diabetic patients ?? with > or = 2 CHD risk factors. ?? LDL-C is now calculated using the Foster ?? calculation, which is a validated novel method providing ?? better accuracy than the Friedewald equation in the ?? estimation of LDL-C. ?? Yash ARMSTRONG et al. MCKINLEY. 2013;310(19): 4537-5283 ?? (http://education.MSDSonline.com.EyeSpot/faq/WVZ262) Non-HDL Cholesterol 104 <130 mg/dL (calc) [facility] Comment: For patients with diabetes plus 1 major ASCVD risk ?? factor, treating to a non-HDL-C goal of <100 mg/dL ?? (LDL-C of <70 mg/dL) is considered a therapeutic ?? option. Triglycerides 154(H) <150 mg/dL [facility] 12/08/2021 10:5 1 AM EDT Dafne Guzman MD LAB BLOOD ORDERABLES Fin al Result [facility] [address] [place] [address], * Hm Pap Smear (12/18/2019) Pap Negative for intraephithelial lesion or malignancy Negative for intraephithelial lesion or malignancy, Other HPV Undetected Undetected, Indeterminate, Quantitative, Not Detected Historical Provider HEALTH MAINTENANCE Final Result from Last 3 Months or Most Recently Relevant to Health Maintenance Insurance [facility] [employer] Care Teams Telehealth Case Manager Relationship Specialty Start Date End Date Dafne Guzman MD [address] [place] [phone] PCP - General Family Medicine 04/03/17 Luis Alberto FNP [address] [place] [address] Nurse Practitioner Family Medicine 05/28/23 Dangelo Price, STAR [address] [place] [address] Ring SewerProver 03/11/24
--- OUTSIDE RECORDS SUMMARY | 2024-09-25 15:05 | XMS_ITS | Encounter Summary ---
Author Organization [employer] Address [address] [facility] 7t [place] [address] Care Team Providers Care Stone Operator Name Role Phone aDfne Guzman MD Primary Care Provider + Luis Alberto Unavailable Unavailable Dangelo Price RN Unavailable [phone] Reason for Visit * Reason Onset Date Comments Referral 08/22/2024 Encounter Details Date Type Department Care Team ([facility] st Contact Info) Description 08/22/2024 Telephone [facility] [address] [place], [place] [phone] Dafne Guzman MD [address] [place], [place] [phone] Referral Social History Tobacco Use Types Packs/Day [...] * Telephone Encounter - Craig Morris - 08/22/2024 3:49 PM EST Tc from pt requesting to Renew referral for Physical Therapy of 03/05/24. Pt has been feeling pain in both Knees and right leg. If any questions contact pt at [phone] documented in this encounter Plan of Treatment Upcoming Encounters Date Type Department Care Team ([facility] st Contact Info) Description 09/29/2024 4:00 PM EDT Office Visit [facility] MED[facility]INE [address] [place] [phone] Dafne Guzman MD [address] [place] [address] 11/21/2024 11:15 AM EDT Office Visit [facility] [address] [place] [address] Dafne Guzman MD [address] [place] [address] 01/23/2025 11:00 AM EDT Office Visit [facility] OPTOM[facility]RY [address] [place] [address] [phone] Janis Bill, OD [address] [place] [address] documented as of this encounter Visit Diagnoses Not on filedocumented in this encounter Additional Health Concerns Assessment Noted Time PHQ-9 Depression Total Score: 7 10/30/19 24 10:19 AM EDT documented as of this encounter Care Teams Stone Operator Relationship Specialty Start Date End Date Dafne Guzman MD [address] [place] [address] PCP - General Family Medicine 04/03/17 Luis Alberto FNP [address] [place] [phone] Nurse Practitioner Family Medicine 05/28/23 Dangelo Price RN [address] [place] [phone] Multimedia Authoring SpecialistPhysicist Cryogenics 03/11/24 documented as of this encounter
--- OUTSIDE RECORDS SUMMARY | 2024-09-25 15:05 | XMS_ITS | Encounter Summary ---
Author Organization [employer] Address [address] [facility] 7t [place] [address] Care Team Providers Care Hide Examiner Name Role Phone Dafne Guzman MD Primary Care Provider + Luis Alberto Unavailable Unavailable Dangelo Price RN Unavailable [phone] Encounter Details Date Type Department Care Team (Late st Contact Info) Description 07/14/2022 Orders Only [facility] MEDICINE [address] [place] [address] [phone] Esperanza Lindsey, RN [address] [place] [address] [phone] Social History Tobacco Use Types Packs/Day Years [...] 09/29/2024 4:00 PM EDT Office Visit [facility] MED[facility]INE [address] [place] [phone] Dafne Guzamn MD [address] [place] [address] [phone] 11/21/2024 11:15 AM EDT Office Visit [facility] MED[facility]INE [address] [place] [phone] Dafne Guzman MD [address] [place] [address] [phone] 01/23/2025 11:00 AM EDT Office Visit [facility] [address] [place], [place] [phone] Janis Bill, OD [address] [place] [address] documented as of this encounter Visit Diagnoses Not on filedocumented in this encounter Care Teams Hide Examiner Relationship Specialty Start Date End Date Dafne Guzman MD [address] [place] [address] PCP - General Family Medicine 04/03/17 Luis Alberto FNP [address] [place] [address] Nurse Practitioner Family Medicine 05/28/23 Dangelo Price, STAR [address] [place] [address] Care Transition MgrUnstacker 03/11/24 documented as of this encounter
--- OUTSIDE RECORDS SUMMARY | 2024-09-25 15:05 | XMS_ITS | Encounter Summary ---
Author Organization [employer] Address 75 [facility] [address]t [place] [address] Care Team Providers Care Bit Tripoler Name Role Phone Dafne Guzman MD Primary Care Provider + Luis Alberto Unavailable Unavailable Dangelo Price RN Unavailable Encounter Details Date Type Department Care Team (Late st Contact Info) Description 07/30/2024 Orders Only [facility] [address] [place] [address] Provider, MD Car Social History Tobacco Use Types Packs/Day Years [...] Upcoming Encounters Date Type Department Care Team ([facility] st Contact Info) Description 09/29/2024 4:00 PM EDT Office Visit [facility] [address] [place] [address] Dafne Guzman MD [address] [place] [address] 11/21/2024 11:15 AM EDT Office Visit [facility] [address] [place] [address] Dafne Guzman MD [address] [place] [address] 01/23/2025 11:00 AM EDT Office Visit [facility] OPTOMETRY [address] [place] [address] FlyJanis houston, OD [address] [place] [address] documented as of this encounter Procedures Procedure Name Priority Date/Time Associated Diagnosis Comments CT LUNG SCREENING Routine 07/22/2024 1:47 PM EST documented in this encounter Results * CT Lung Screening Low dose (07/22/2024 1:47 PM EST) Anatomical Region Laterality Modality Lung Computed Tomogra phy Historical Provider MD BOTELLO CT PROCEDURES Final R esult documented in this encounter Visit Diagnoses Not on filedocumented in this encounter Additional Health Concerns Assessment Noted Time PHQ-9 Depression Total Score: 7 10/30/19 24 10:19 AM EDT documented as of this encounter Care Teams Bit Tripoler Relationship Specialty Start Date End Date Dafne Guzman MD [address] [place] [address] PCP - General Family Medicine 04/03/17 Luis Alberto FNP [address] [place] [address] Nurse Practitioner Family Medicine 05/28/23 Dangelo Price RN [address] [place] [phone] Boat CleanerFire Pilot 03/11/24 documented as of this encounter
--- OUTSIDE RECORDS SUMMARY | 2024-09-25 15:05 | XMS_ITS | Encounter Summary ---
Author Organization [employer] Address 75 [facility] 7t [place] [address] Care Team Providers Care Repair Manager Name Role Phone Dafne Guzman MD Primary Care Provider + Luis Alberto Unavailable Unavailable Dangelo Price RN Unavailable [phone] Reason for Visit * Reason Onset Date Comments Appointment Request 06/30/2024 Encounter Details Date Type Department Care Team ([facility] Contact Info) Description 06/30/2024 Telephone [facility] MED[facility]INE [address] [place], [place] [phone] Dafne Guzman MD [address] [place], [place] [phone] Appointment Request Social History Tobacco Use Types [...] encounter Miscellaneous Notes * Telephone Encounter - Ida Naylor - 06/30/2024 10:01 AM EST Tc from pt requesting to R/S today's appointment at 2pm, pt inform she wont be able to come in today. *if pt gets R/S she will like appointment to be after 1 pm * documented in this encounter Plan of Treatment Upcoming Encounters Date Type Department Care Team ([facility] st Contact Info) Description 09/29/2024 4:00 PM EDT Office Visit [facility] MED[facility] [address] [place] [phone] Dafne Guzman MD [address] [place] [address] 11/21/2024 11:15 AM EDT Office Visit [facility] MED[facility] [address] [place] [address] Dafne Guzman MD [address] [place] [address] 01/23/2025 11:00 AM EDT Office Visit [facility] OPTOMETRY [address] [place] [address] Fly, Janis, OD [address] [place] [address] documented as of this encounter Visit Diagnoses Not on filedocumented in this encounter Additional Health Concerns Assessment Noted Time PHQ-9 Depression Total Score: 7 10/30/19 24 10:19 AM EDT documented as of this encounter Care Teams Repair Manager Relationship Specialty Start Date End Date Dafne Guzman MD [address] [place] [address] PCP - General Family Medicine 04/03/17 Luis Alberto FNP [address] [place] [address] Nurse Practitioner Family Medicine 05/28/23 Dangelo Price, STAR [address] [place] [phone] Hose HandlerCollarette Separator 03/11/24 documented as of this encounter
== END 2024-09-25 13:22 | disposition home or self-care (01) ==
LOC: HO.ENCR 12:40
PROVIDERS: PCP Internal Medicine; Visit Provider Student in an Organized Health Care Education/Training Program
DX: E04.2 Nontoxic multinodular goiter (principal)
CPT/HCPCS: 99213

== ENCOUNTER → 2024-09-25 12:39 | Outpatient (BNVA) | payer MEDICAID, SELFPAY | PROVIDERS: PCP Internal Medicine; Visit Provider Student in an Organized Health Care Education/Training Program | DX: E04.2 Nontoxic multinodular goiter (principal) | CPT/HCPCS: 99212 ==